=== PATIENT | male | born 1970 | race Caucasian/White ===

== ENCOUNTER 2024-09-25 14:10 | Inpatient (IN) ==
[2024-09-25 14:29] LABS: Basophils # (auto) 0.08 K/uL (0.00-0.20); Basophils % (auto) 0.6 %; Eosinophils % (auto) 0.8 %; Hematocrit (blood only) 43.6 % (42.0-52.0); Immature Granulocytes # (auto) 0.22 K/uL (0.01-0.20); Immature Granulocytes % (auto) 1.7 %; Lymphocytes # (auto) 2.95 K/uL (1.20-3.40); Lymphocytes % (auto) 22.8 %; Mean Corpuscular Hemoglobin 29.1 pg (25.0-34.0); Mean Corpuscular Hgb Conc 34.4 g/dL (32.0-36.0); Mean Corpuscular Volume 84.7 fL (80.0-100.0); Mean Platelet Volume 10.5 fL (9.4-12.4); Monocytes # (auto) 0.82 K/uL (0.11-0.59); Monocytes % (auto) 6.3 %; Neutrophils # (auto) 8.75 K/uL (1.40-6.50); Neutrophils % (auto) 67.8 %; Platelet Count 249 K/uL (130-400); RDW Coefficient of Variation 13.4 % (11.5-14.5); RDW Standard Deviation 41.7 fL (36.4-46.3); Red Blood Count 5.15 M/uL (4.70-6.10); White Blood Count 12.92 K/ul (4.8-10.8)
[2024-09-25 15:02] LABS: Alanine Aminotransferase 15 U/L (7-52); Albumin Globulin Ratio 1.1 (0.9-2); Albumin Level 3.8 gm/dl (3.4-5.0); Alkaline Phosphatase 181 U/L (34-104); Anion Gap 6 (3-11); Aspartate Aminotransferase 13 U/L (13-39); BUN Creatinine Ratio 12.5 (10-20); Bilirubin,Total 0.4 mg/dl (0.2-1.0); Blood Urea Nitrogen 10 mg/dl (6-23); Calcium 8.8 mg/dl (8.6-10.3); Carbon Dioxide 26 mmol/L (21-32); Chloride 98 mmol/L (98-107); Creatinine Clr Calc Pharmacy 115.4 ml/min; Globulin 3.6 gm/dl (2.5-4.0); Glucose 557 mg/dl (70-99(Fasting)); Potassium 4.4 mmol/L (3.5-5.1); Sodium 130 mmol/L (136-145); Total Protein 7.4 gm/dl (6.0-8.3)
[2024-09-25] MEDS: SODIUM CHLORIDE 0.9% 1,000 ML IV ONE (15:46)
--- NOTE | 2024-09-25 15:51 | XRay Report ---
XR chest 1V portable CLINICAL HISTORY: weakness COMPARISON STUDY: No previous studies for comparison. FINDINGS: Intracanalicular electrodes are incidentally noted. There is mild elevation of the right he midiaphragm. Associated right basilar opacity favors atelectasis. No consolidation to suggest pneumon ia. There is no evidence for pulmonary edema. Cardiomediastinal silhouette is unremarkable. IMPRESSION: 1. No acute cardiopulmonary findings. 2. Mild elevation of the right hemidiaphragm. Associated right basilar densities favor atelectasis. ACT 112: Negative or not required by law. Electronically signed by: Sergio Andrew M.D. 09/25/2024 3:49 PM
[2024-09-25 15:58] LABS: Magnesium 1.8 mg/dl (1.7-2.4)
[2024-09-25] MEDS: NovoLIN-R INSULIN PER UNIT CHARGE SC STA ×2 (16:01→19:23)
[2024-09-25] MEDS: NovoLIN-R INSULIN PER UNIT CHARGE IV STA (16:02)
[2024-09-25 16:10] LABS: C Reactive Protein < 0.50 mg/dl (0-0.5)
[2024-09-25] MEDS: OPTIRAY 320 100ml IV ONE (16:16)
[2024-09-25 16:20] LABS: Thyroid Stimulating Hormone 0.885 uIu/ml (0.300-4.500)
[2024-09-25] MEDS: ONDANSETRON INJ 2 MG/ML 2 ML VIAL IV STA (16:46)
[2024-09-25] MEDS: MoRPHine SULFATE 4 MG/ML 1 ML CARP\\VIAL IV STA (16:47)
[2024-09-25 16:51] LABS: Appearance Urine Clear (Clear); Bilirubin Urine Negative (Negative); Blood Urine Negative (Negative); Color Urine Yellow; Glucose Urine UA 3+ (Negative); Ketones Urine Negative (Negative); Leukocyte Esterase Urine Negative (Negative); Nitrite Urine Negative (Negative); Protein Urine Negative (Negative); Urobilinogen Urine Negative (Negative); pH Urine 6.5 (4.5-7.5)
--- NOTE | 2024-09-25 17:09 | CT Scan Report ---
INDICATION: Abdominal pain and bloody stools. COMPARISON: No relevant priors available. TECHNIQUE: Axial CT images of the abdomen and pelvis were obtained following IV contrast administration. Coronal and sagittal reformations were reviewed. FINDINGS: Subsegmental atelectasis in the lung bases. Hepatic steatosis. The gallbladder is surgically absent. The spleen, pancreas and adrenal glands appear unremarkable. No hydronephrosis. No evidence of bowel obstruction/appendicitis. Mildly dilated small bowel loops in the left lower quadrant. No pneumatosis or portal venous gas. No free air. No drainable fluid collection. Atheromatous plaquing of the abdominal aorta without dissection or aneurysm. Mild urinary bladder distention. Small fat-containing bilateral inguinal hernias. No acute osseous abnormality evident. IMPRESSION: 1. Mildly dilated small bowel loops in the left lower quadrant could relate to ileus or obstruction. No pneumatosis/portal venous gas or free air. 2. Hepatic steatosis. 3. Small fat-containing bilateral inguinal hernias. Electronically signed by Des Donald 09-25-2024 5:08 PM
--- NOTE | 2024-09-25 17:14 | XRay Report ---
Clinical History: Diabetic ulcer 3 views of the left foot are submitted for review. Findings: There is sclerosis and deformity of the second metatarsal head. No subluxation or dislocation is seen. No significant arthritic changes are noted. There are dorsal and plantar calcaneal spurs. No other osseous abnormality is identified. There are no radiopaque foreign bodies. Vascular calcifications are present. Impression: 1. Sclerosis and deformity of the second metatarsal head, which could be due to old trauma 2. Calcaneal spurs 3. No definite acute pathology Electronically signed by Dariel Mauro 09-25-2024 5:13 PM
--- NOTE | 2024-09-25 17:15 | Electrocardiogram Report ---
Test Reason : Blood Pressure : */* mmHG Vent. Rate : 82 BPM Atrial Rate : 82 BPM P-R Int : 144 ms QRS Dur : 72 ms QT Int : 358 ms P-R-T Axes : 43 51 53 degrees QTcB Int : 418 ms Normal sinus rhythm No previous ECGs available Confirmed by Parker Aiken ([id number]) on 09/25/2024 5:14:44 PM Referred By: REFERRED SELF Confirmed By: Parker Aiken
--- NOTE | 2024-09-25 19:10 | History & Physical Report ---
Date of Service September 25, 2024 Assessment & Plan (1) Hyperglycemia due to type 2 diabetes mellitus: (2) Type 2 diabetes mellitus: (3) Diabetic foot ulcer: (4) Vomiting and diarrhea: (5) Hyponatremia: Plan 54-year-old male PMHx T2DM insulin-dependent, Crohn's disease, dyslipidemia, and GERD presenting for a left foot blister that has been ongoing for the past 5 weeks and has not gotten better. Patient is from [place], has recently moved to the area. Also having vomiting and diarrhea with every meal. Pt has leukocytosis 12.92 on arrival, ESR 24, and Na 130 with initial glucose 557, alkaline phos 181. CTAP with mildly dilated small bowel loops in LLQ, ileus or obstruction, hepatic steatosis, small fat-containing bilateral inguinal hernias; CXR without acute findings, but mild elevation of the R hemidiaphragm; L foot x- ray with sclerosis and deformity of the second metatarsal head could be due to old trauma, calcaneal spurs, but no acute findings. Patient received 2L NSS, Zofran 4 mg IV, morphine 4 mg IV, and 18 units of insulin in ED. #Hyperglycemia/T2DM, insulin-dependent H/o DMT2; home regimen Lantus 30U every AM, Ozempic 2 mg SC weekly. Upon arrival, glucose 557. Received 18U insulin and total, most recent glucose 325. Has been eating poorly over the past 2 days given traveling from [place] to [place], did take insulin on the morning of arrival. - Pending A1c - SSI with target BSG range 110-140mg/dL, CF 40, carb ratio 15; Lantus 15 BID - Hold Ozempic while inpatient - BSG ACHS - Pharm glycemic management consult placed, appreciate assistance- Adjust regimen as needed #Diabetic foot ulcer, left No h/o animal/human bites, h/o DMT2 with previous foot wound complicated by gangrene; started ~ 5 weeks ago, had had yellow drainage, not healing and causing significant pain. - CBC elevated WBC 12.9; XR L foot with sclerosis and deformity of second metatarsal head (old trauma), calcaneal spurs, but no acute findings; pending culture - CT pending- NO MRI completed given metal plate in back and noncompatible with MRI - Start Zosyn; Wound care prn - +/- infectious disease consult pending clinical improvement; no consult placed at time of admission #Vomiting + Diarrhea/? Ileus/Crohn's disease/GERD Vomiting every morning for the past 3 months, with abdominal pain at L side. Diarrhea x 1.5 months with blood streaking in stool, abdominal pain with BM. History of Crohn's disease, no medications for such. Last colonoscopy ~ 3 years ago, polyps identified by noncancerous. No sick contacts. No recent antibiotics. ? gastroparesis causing symptoms. - CBC with leukocytosis, electrolytes grossly WNL with exception of sodium 130; alkaline phosphatase elevated 181 - CTAP with mildly dilated small bowel loops in LLQ (ileus or obstruction), hepatic steatosis, and bilateral inguinal hernias - Pending stool BioFire and C. difficile testing - Sucralfate added; increased omeprazole to 40mg - NPO; continue IVF - Consider GI consult #Hyponatremia Likely secondary to hyperglycemia; currently asymptomatic and euvolemic clinically. - Na 130, glucose initially 557; corrected sodium 141 - BMP am #Dyslipidemia- Atorvastatin, ezetimibe Case management consulted- PCP for patient + given recent move to [place] Dispo: Admit, med/sx VTE prophylaxis: Lovenox This document was dictated utilizing [employer]. Please excuse any grammatical errors that may be secondary to use of this software. Admission and Anticipated Discharge Date Admission Date: 09/25/2024 History of Present Illness Chief Complaint: Foot wound, vomiting and diarrhea Primary Care Provider: NO PCP 54-year-old male PMHx T2DM insulin-dependent, Crohn's disease, dyslipidemia, and GERD presenting for a left foot blister that has been ongoing for the past 5 weeks and has not gotten better. Patient is from [place], has recently moved to the area. Also having vomiting and diarrhea with every meal which has been ongoing. Patient states that the wound on his L foot began approximately 5 weeks ago, and that he does not recall direct injury to the area he just noticed that it had started. He had previous infections secondary to a thorn being in his foot which required infectious disease consults and surgical consultations as he had the complication of gangrene in this same area. States that the pain has just been worsening to the point where he is unable to put any weight on it or walk on the area. Pain today is a 9/10 on the pain scale, described as aching and pressure that surrounds the entire foot. For the past 2 days [employer] he was trying to keep weight off of his foot for this reason. States that previously he was having yellow drainage coming out of the area, but this stopped approximately 1 week ago. No streaking up the leg, but does feel that the sides of his foot are swollen at times. Glucose was elevated at 557 on arrival, but the patient states that he was eating excessive amount of junk food over the past 2 days given that he was traveling from [place] to [place]. Has been taking medications as prescribed. Additionally, patient has been having complaint of vomiting every morning for the past 3 months as well as diarrhea for the past 1.5 months with associated blood streaking in his stool. Does have a history of Crohn's and had colonoscopy approximately 3 years ago which did reveal polyps but noncancerous nature. States that he does get abdominal pain mainly in the left side, and also is exacerbated when he has vomiting. Has not had any fever or chills. Additionally no chest pain, shortness of breath, palpitations, constipation, worsening numbness or tingling, LUTS, or dizziness. ED workup reveals a CBC with leukocytosis of 12.92, ESR 24, CMP with sodium 130, initial glucose 557, most recent 325 after 18U insulin, alkaline phosphatase 181, and UA without signs of infection. CTAP with mildly dilated small bowel loops in LLQ, ileus or obstruction, hepatic steatosis, small fat-containing bilateral inguinal hernias; CXR without acute findings, but mild elevation of the R hemidiaphragm; L foot x-ray with sclerosis and deformity of the second metatarsal head could be due to old trauma, calcaneal spurs, but no acute findings. Patient received 2L NSS, Zofran 4 mg IV, morphine 4 mg IV, and 18 units of insulin in ED. Please see Dr. Oscar's attestation for adjustments/additions to treatment plan. Allergies Allergy/AdvReac Type Severity Reaction Status Date / Time diphenhydramine Allergy Severe hyperactive Verified 09/25/24 17:58 [From Benadryl] ,anxiety,mauricio llucination s haloperidol [From Haldol] Allergy Severe hyperactivi Verified 09/25/24 17:58 ty,agitatio n pregabalin [From Lyrica] Allergy Intermediate hands and Verified 09/25/24 17:58 feet swell and burn Home Medications Medication Instructions Recorded Confirmed Type atorvastatin 20 mg tablet 20 mg PO QAM 09/25/24 09/25/24 History ezetimibe 10 mg tablet (Zetia) 10 mg PO QAM 09/25/24 09/25/24 History gabapentin 800 mg tablet 800 mg PO QAM 09/25/24 09/25/24 History gabapentin 800 mg tablet 800 mg PO TID PRN Pain 09/25/24 09/25/24 History insulin glargine 100 unit/mL 30 unit subcut QAM 09/25/24 09/25/24 History subcutaneous solution (Lantus U-100 Insulin) omeprazole 20 mg tablet,delayed 20 mg PO QAM 09/25/24 09/25/24 History release semaglutide 2 mg/dose (8 mg/3 mL) 2 mg subcut WK 09/25/24 09/25/24 History subcutaneous pen injector (Ozempic) Past Med/Surg History Problem List (Updated 09/25/24 @ 20:16 by Karon Brink PA-C) Hyponatremia Vomiting and diarrhea Diabetic foot ulcer Type 2 diabetes mellitus Hyperglycemia due to type 2 diabetes mellitus Social History Smoking Status: Never smoker Feels Safe at Home: Yes Review of Systems 2 Review of Systems: All systems reviewed & are unremarkable except as noted in Subjective Physical Exam 2 Physical Exam: General: No acute distress Skin: Warm and dry; no rashes or lesions aside from L foot; L MTP w/ quarter sized ulceration, pink in center and yellow, dry skin around border, no oozing; no streaking; mild edema in surrounding area. Head: Normocephalic, atraumatic Eyes: PERRL, conjunctivae clear, sclera non-icteric; EOM intact ENT: External ear and ear canal without swelling; nose atraumatic; fair dentition, tongue normal appearance, pharynx normal Neck: Supple, no LAD; no JVD Cardio: RRR, no M/G/R, S1 and S2 normal Resp: No respiratory distress, Lungs CTA in all lobes bilaterally, no wheezes, rales, or rhonchi Abdomen: Soft, symmetric, mild tenderness to palpation L quadrant, no guarding or rebound tenderness; No distention; No masses or hepatosplenomegaly; Bowel sounds normoactive MSK: No deformities, full ROM throughout; pulses palpable and equal Neuro: Awake, alert; Muscle strength 5/5 bilaterally in UE/LE; Sensation intact bilaterally; CN grossly intact Psych: Appropriate mood and affect; good judgement and insight. present in room at time of visit. Results & Data Results & Data Vital Signs (Past 12 Hours) Vital Signs Temp Pulse Pulse Resp BP BP Pulse Ox 09/25/24 18:00 80 17 152/96 H 96 09/25/24 16:38 74 09/25/24 16:34 74 22 95 09/25/24 16:00 79 17 156/92 H 95 09/25/24 14:12 36.7 C 96 H 20 150/96 H 97 O2 Del Method 09/25/24 18:00 Room Air 09/25/24 16:38 09/25/24 16:34 Room Air 09/25/24 16:00 Room Air 09/25/24 14:12 Room Air Laboratory Results 09/25/24 18:10 Gram Stain - Pending Foot,Left Aerobic and Anaerobic Culture - Pending 09/25/24 09/25/24 09/25/24 17:23 16:35 15:44 WBC RBC Hgb Hct MCV MCH MCHC RDW Std Deviation RDW Coeff of Cristhian Plt Count MPV Immature Gran % (Auto) Neut % (Auto) Lymph % (Auto) [place] % (Auto) Eos % (Auto) Baso % (Auto) Neut # (Auto) Lymph # (Auto) [place] # (Auto) Eos # (Auto) Baso # (Auto) Immature Gran # (Auto) ESR Sodium Potassium Chloride Carbon Dioxide Anion Gap BUN Creatinine Est Cr Clr Drug Dosing eGFR BUN/Creatinine Ratio Glucose POC Glucose 325 H* 399 H* Calcium Magnesium Total Bilirubin AST ALT Alkaline Phosphatase C-Reactive Protein Total Protein Albumin Globulin Albumin/Globulin Ratio TSH Urine Color Yellow Urine Appearance Clear Urine pH 6.5 Ur Specific [place] 1.040 H Urine Protein Negative Urine Glucose (UA) 3+ H Urine Ketones Negative Urine Blood Negative Urine Nitrite Negative Urine Bilirubin Negative Urine Urobilinogen Negative Ur Leukocyte Esterase Negative 09/25/24 14:16 WBC 12.92 H RBC 5.15 Hgb 15.0 Hct 43.6 MCV 84.7 MCH 29.1 MCHC 34.4 RDW Std Deviation 41.7 RDW Coeff of Cristhian 13.4 Plt Count 249 MPV 10.5 Immature Gran % (Auto) 1.7 Neut % (Auto) 67.8 Lymph % (Auto) 22.8 [place] % (Auto) 6.3 Eos % (Auto) 0.8 Baso % (Auto) 0.6 Neut # (Auto) 8.75 H Lymph # (Auto) 2.95 [place] # (Auto) 0.82 H Eos # (Auto) 0.10 Baso # (Auto) 0.08 Immature Gran # (Auto) 0.22 H ESR 24 H Sodium 130 L Potassium 4.4 Chloride 98 Carbon Dioxide 26 Anion Gap 6 BUN 10 Creatinine 0.80 Est Cr Clr Drug Dosing 115.4 eGFR 105.17 BUN/Creatinine Ratio 12.5 Glucose 557 H* POC Glucose Calcium 8.8 Magnesium 1.8 Total Bilirubin 0.4 AST 13 ALT 15 Alkaline Phosphatase 181 H C-Reactive Protein < 0.50 Total Protein 7.4 Albumin 3.8 Globulin 3.6 Albumin/Globulin Ratio 1.1 TSH 0.885 Urine Color Urine Appearance Urine pH Ur Specific [place] Urine Protein Urine Glucose (UA) Urine Ketones Urine Blood Urine Nitrite Urine Bilirubin Urine Urobilinogen Ur Leukocyte Esterase Diagnostic Findings Abdomen/Pelvis CT 09/25/24 15:35 INDICATION: Abdominal pain and bloody stools. COMPARISON: No relevant priors available. TECHNIQUE: Axial CT images of the abdomen and pelvis were obtained following IV contrast administration. Coronal and sagittal reformations were reviewed. FINDINGS: Subsegmental atelectasis in the lung bases. Hepatic steatosis. The gallbladder is surgically absent. The spleen, pancreas and adrenal glands appear unremarkable. No hydronephrosis. No evidence of bowel obstruction/appendicitis. Mildly dilated small bowel loops in the left lower quadrant. No pneumatosis or portal venous gas. No free air. No drainable fluid collection. Atheromatous plaquing of the abdominal aorta without dissection or aneurysm. Mild urinary bladder distention. Small fat-containing bilateral inguinal hernias. No acute osseous abnormality evident. IMPRESSION: 1. Mildly dilated small bowel loops in the left lower quadrant could relate to ileus or obstruction. No pneumatosis/portal venous gas or free air. 2. Hepatic steatosis. 3. Small fat-containing bilateral inguinal hernias. Electronically signed by Des Donald 09-25-2024 5:08 PM Chest X-Ray 09/25/24 15:35 XR chest 1V portable CLINICAL HISTORY: weakness COMPARISON STUDY: No previous studies for comparison. FINDINGS: Intracanalicular electrodes are incidentally noted. There is mild elevation of the right hemidiaphragm. Associated right basilar opacity favors atelectasis. No consolidation to suggest pneumonia. There is no evidence for pulmonary edema. Cardiomediastinal silhouette is unremarkable. IMPRESSION: 1. No acute cardiopulmonary findings. 2. Mild elevation of the right hemidiaphragm. Associated right basilar densities favor atelectasis. ACT 112: Negative or not required by law. Electronically signed by: Sergio Andrew M.D. 09/25/2024 3:49 PM Foot X-Ray 09/25/24 16:29 Clinical History: Diabetic ulcer 3 views of the left foot are submitted for review. Findings: There is sclerosis and deformity of the second metatarsal head. No subluxation or dislocation is seen. No significant arthritic changes are noted. There are dorsal and plantar calcaneal spurs. No other osseous abnormality is identified. There are no radiopaque foreign bodies. Vascular calcifications are present. Impression: 1. Sclerosis and deformity of the second metatarsal head, which could be due to old trauma 2. Calcaneal spurs 3. No definite acute pathology Electronically signed by Dariel Mauro 09-25-2024 5:13 PM Medications Administered NSS 1L Ondansetron 4 mg IV Morphine 4 mg IV Insulin human regular 28 units total (SQ/IV) ECG Additional Comments: cc: ~ DICTATED BY: Parker Aiken MD Test Reason : Blood Pressure : */* mmHG Vent. Rate : 82 BPM Atrial Rate : 82 BPM P-R Int : 144 ms QRS Dur : 72 ms QT Int : 358 ms P-R-T Axes : 43 51 53 degrees QTcB Int : 418 ms Normal sinus rhythm No previous ECGs available Confirmed by Parker Aiken ([id number]) on 09/25/2024 5:14:44 PM Referred By: REFERRED SELF Confirmed By: Parker Aiken Code Status & VTE Plan Code Status Full PG Care Time/CCT Total # of Minutes Spent Total Time Spent with Patient: Total time spent is greater than 50% in coordination of care (as documented) at patient's floor/unit and/or counseling patient: Coding Level of Care Code 65413 INT INP/OBS CARE 3/75MIN Diagnoses Hyperglycemia due to type 2 diabetes mellitus E11.65 Type 2 diabetes mellitus E11.9 Diabetic foot ulcer E11.621; L97.509 Vomiting and diarrhea R11.10; R19.7 Hyponatremia E87.1
[2024-09-25] MEDS: SODIUM CHLORIDE 0.9% 1,000 ML IV SCH (19:14)
[2024-09-25] MEDS ORDERED: GLUCOSE 10 TAB/TUBE PO PRN (20:07)
[2024-09-25] MEDS ORDERED: DEXTROSE 50% 50 ML SYRINGE IV PRN (20:07)
[2024-09-25] MEDS ORDERED: CARBOHYDRATES FOR HYPOGLYCEMIA PO PRN (20:07)
[2024-09-25] MEDS ORDERED: GLUCOSE 40% GEL 15 GM TUBE PO PRN (20:07)
[2024-09-25] MEDS ORDERED: PHARMACY GLYCEMIC MGMT CONSULT PRN (20:07)
[2024-09-25] MEDS ORDERED: GLUCAGON FOR INJ 1 MG VIAL SQ PRN (20:07)
[2024-09-25] MEDS: HYDROmorphone INJ 0.5 MG/0.5 ML SYR IV ONE (20:26)
[2024-09-25] MEDS ORDERED: ALUMINUM/MAGNESIUM SUSP 30 ML UDC PO PRN (20:32)
[2024-09-25] MEDS ORDERED: MELATONIN 3 MG TAB PO PRN (20:32)
[2024-09-25] MEDS: LANTUS PER UNIT CHARGE SQ SCH (21:32)
[2024-09-25] MEDS: ENOXAPARIN INJ 40 MG/0.4 ML SYR SQ SCH (21:32)
[2024-09-25] MEDS: SUCRALFATE 1 GM/10 ML UDC PO SCH (21:32)
[2024-09-25] MEDS: PIPERACILLIN/TAZOBACTAM 4.5 GM/100 ML BAG IV ONE (21:33)
--- NOTE | 2024-09-25 22:14 | Emergency Department Note ---
Impression & Plan Vomiting and diarrhea, Hyperglycemia due to type 2 diabetes mellitus, Diabetic foot ulcer ED Provider Note CHIEF COMPLAINT: left foot ulceration, diarrhea and vomiting HISTORY OF PRESENT ILLNESS: This 54-year-old male patient past medical history of type 2 diabetes, diabetic foot ulceration , Crohn's disease presents to the emergency department with complaints of vomiting or diarrhea after eating for the last several weeks as well as a wound to the bottom of the left foot. He states he just moved here from [place] and was off of his insulin for approximately a week. His states they had a lot of "sugary foods" during their travel. patient states he did take his insulin prior to coming to the emergency department. Patient denies any fevers or significant pain. He has not been on antibiotics recently. He denies any blood in his emesis or stools. He denies chest pain and significant shortness of breath. He does not have a primary care physician in this area. REVIEW OF SYSTEMS: A review of systems was performed with positives and pertinent negatives listed in the history of present illness. 10 systems were reviewed and are otherwise negative. ALLERGIES: see below MEDICATIONS: see below PMH: see below SOCIAL HISTORY: see below DDx: Diabetic foot ulcer, cellulitis, osteomyelitis, dehydration, kidney injury, foodborne process, norovirus, C. difficile, PHYSICAL EXAM: Vital signs reviewed. General: Well-appearing 54-year-old male, in no significant distress. HEENT: No scleral icterus, PERRLA, neck supple. moist mucous membranes Cardiovascular: Regular rate and rhythm, no extra sounds. Pulmonary: Clear to auscultation bilaterally, normal work of breathing. Abdomen: Soft, obese, nontender, nondistended, positive bowel sounds. Musculoskeletal: Atraumatic, no peripheral edema. Neurologic: Patient awake alert and oriented x 3, speech is clear Skin: Warm, dry, dime sized ulceration to the first MTP on the plantar surface of the left foot no significant drainage or surrounding cellulitis however the fascia is visible EMERGENCY DEPARTMENT COURSE/MDM: This patient was evaluated and appeared to be in no significant distress. IV access was obtained and laboratory work was drawn. Patient's blood glucose is noted to be over 500. X-ray of the left foot reveals sclerosis and deformity of the second metatarsal head however no evidence of acute pathology. Given the patient's complaints of months of vomiting and diarrhea, CT imaging of the abdomen pelvis was performed, there are mildly dilated loops of bowels in the left lower quadrant. I suspect this could be ileus or related to the patient's stated history of Crohn's disease. I do not suspect obstruction at this time. Laboratory work otherwise reveals a slightly elevated sed rate and negative CRP. Patient was medicated with morphine and Zofran for complaints of pain. He was hydrated with normal saline solution and given insulin for his hyperglycemia. Patient does not have insurance locally, does not have a PCP established. He will require admission for wound care, glycemic control, GI evaluation and case management. Patient and family were informed of findings and plan and agreed. MONITORING: An order for cardiac monitoring was placed and the patient is noted to be in a normal sinus rhythm at 83 beats per minute. RADIOLOGY: Chest x-ray to my interpretation reveals no evidence of infiltrate or failure. Right basilar atelectasis is noted. Left foot x-ray: Impression: 1. Sclerosis and deformity of the second metatarsal head, which could be due to old trauma 2. Calcaneal spurs 3. No definite acute pathology CT abdomen and pelvis: IMPRESSION: 1. Mildly dilated small bowel loops in the left lower quadrant could relate to ileus or obstruction. No pneumatosis/portal venous gas or free air. 2. Hepatic steatosis. 3. Small fat-containing bilateral inguinal hernias. EKG: to my interpretation reveals a NSR at [address] segments, QTc 418. normal ST segments. DISPOSITION: Home. Past Med/Surg History Problem List (Updated 09/28/24 @ 20:09 by Ade Ramirez MD) Pain Loss of protective sensation of skin of foot Diabetic ulcer of left foot associated with type 2 diabetes mellitus, with fat layer exposed Hyponatremia Vomiting and diarrhea (Acute) Diabetic foot ulcer (Acute) Type 2 diabetes mellitus Hyperglycemia due to type 2 diabetes mellitus (Acute) Social History Smoking Status: Former smoker Hx Alcohol Use: No Hx Substance Use: No Communication Ability: Effective Balloon Tester Required: No Beliefs That Will Affect Care: None Current Living Situation: Spouse Feels Safe at Home: Yes Assistive Devices: None Allergies Allergies Allergy/AdvReac Type Severity Reaction Status Date / Time diphenhydramine Allergy Severe hyperactive Verified 09/25/24 17:58 [From Benadryl] ,anxiety,mauricio llucination s haloperidol [From Haldol] Allergy Severe hyperactivi Verified 09/25/24 17:58 tygopal pregabalin [From Lyrica] Allergy Intermediate hands and Verified 09/25/24 17:58 feet swell and burn Home Meds Previous Rx's Medication Instructions Recorded atorvastatin 20 mg tablet 20 mg PO QAM #30 tabs 09/28/24 cephalexin 500 mg capsule 500 mg PO TID 10 days #30 caps 09/28/24 ezetimibe 10 mg tablet (Zetia) 10 mg PO QAM #30 tabs 09/28/24 gabapentin 800 mg tablet 800 mg PO QAM #30 tabs 09/28/24 gabapentin 800 mg tablet 800 mg PO TID PRN Pain #90 tabs 09/28/24 insulin glargine 100 unit/mL 30 unit (0.3 mL) subcut QAM #3 mL 09/28/24 subcutaneous solution (Lantus U-100 Insulin) lisinopril 5 mg tablet 5 mg PO QAM #30 tabs 09/28/24 omeprazole 20 mg tablet,delayed 20 mg PO QAM #30 tabs 09/28/24 release oxycodone-acetaminophen 5 mg-325 1 - 2 tab PO Q4H PRN pain #10 tabs 09/28/24 mg tablet (Percocet) pen needle, diabetic 32 gauge x #100 ea 09/28/24 5/32" (Pen Needle) semaglutide 2 mg/dose (8 mg/3 mL) 2 mg (0.75 mL) subcut WK #3 mL 09/28/24 subcutaneous pen injector (Ozempic) Results & Data (ED) Vital Signs Vital Signs - 24 hr 09/25/24 14:12 09/25/24 16:00 09/25/24 16:34 Temperature 36.7 C Temperature Source Temporal Artery Scan Pulse Rate 96 H 74 Pulse Rate [Apical] 79 Pulse Rhythm Regular Regular Pulse Rhythm [Apical] Regular Pulse Strength Normal Pulse Strength [Apical] Normal Respiratory Rate 20 17 22 Respiratory Effort / Characteristics Non-Labored Spontaneous Non-Labored Spontaneous Respiratory Depth Normal Normal Respiratory Pattern Blood Pressure 150/96 H Blood Pressure [Right Arm] 156/92 H Blood Pressure Mean 114 Blood Pressure Mean [Right Arm] 113 Blood Pressure Position Sitting Blood Pressure Position [Right Arm] Sitting Pulse Oximetry 97 95 95 Oxygen Delivery Method Room Air Room Air Room Air Sepsis Recent Fever Within 48 Hours No Sepsis New/Unexplained Change in Mental Status N/A Sepsis Action Taken by Nursing No Action Required 09/25/24 16:38 09/25/24 18:00 09/25/24 19:11 Temperature Temperature Source Pulse Rate 74 Pulse Rate [Apical] 80 83 Pulse Rhythm Pulse Rhythm [Apical] Regular Pulse Strength Pulse Strength [Apical] Normal Respiratory Rate 17 23 Respiratory Effort / Characteristics Non-Labored Spontaneous Non-Labored Spontaneous Respiratory Depth Normal Normal Respiratory Pattern Regular Blood Pressure Blood Pressure [Right Arm] 152/96 H 140/83 Blood Pressure Mean Blood Pressure Mean [Right Arm] 114 102 Blood Pressure Position Blood Pressure Position [Right Arm] Semi-fowlers Pulse Oximetry 96 95 Oxygen Delivery Method Room Air Room Air Sepsis Recent Fever Within 48 Hours Sepsis New/Unexplained Change in Mental Status Sepsis Action Taken by Prison Medications Current Medication List: was personally reviewed by me Laboratory Data Attestation: I reviewed the patient's lab results. 09/27/24 07:56 09/27/24 07:56 Lab Results 09/25/24 09/25/24 09/25/24 Range/Units 14:16 15:44 16:35 WBC 12.92 H (4.8-10.8) K/ul RBC 5.15 (4.70-6.10) M/uL Hgb 15.0 (14.0-18.0) g/dl Hct 43.6 (42.0-52.0) % MCV 84.7 (80.0-100.0) fL MCH 29.1 (25.0-34.0) pg MCHC 34.4 (32.0-36.0) g/dL RDW Std Deviation 41.7 (36.4-46.3) fL RDW Coeff of Cristhian 13.4 (11.5-14.5) % Plt Count 249 (130-400) K/uL MPV 10.5 (9.4-12.4) fL Immature Gran % (Auto) 1.7 % Neut % (Auto) 67.8 % Lymph % (Auto) 22.8 % [place] % (Auto) 6.3 % Eos % (Auto) 0.8 % Baso % (Auto) 0.6 % Neut # (Auto) 8.75 H (1.40-6.50) K/uL Lymph # (Auto) 2.95 (1.20-3.40) K/uL [place] # (Auto) 0.82 H (0.11-0.59) K/uL Eos # (Auto) 0.10 (0.00-0.50) K/uL Baso # (Auto) 0.08 (0.00-0.20) K/uL Immature Gran # (Auto) 0.22 H (0.01-0.20) K/uL ESR 24 H (0-20) mm/hr Sodium 130 L (136-145) mmol/L Potassium 4.4 (3.5-5.1) mmol/L Chloride 98 (98-107) mmol/L Carbon Dioxide 26 (21-32) mmol/L Anion Gap 6 (3-11) BUN 10 (6-23) mg/dl Creatinine 0.80 (0.6-1.4) mg/dl Est Cr Clr Drug Dosing 115.4 ml/min eGFR 105.17 BUN/Creatinine Ratio 12.5 (10-20) Glucose 557 H* (70-99(Fasting)) mg/dl POC Glucose 399 H* (70-99) mg/dl Calcium 8.8 (8.6-10.3) mg/dl Magnesium 1.8 (1.7-2.4) mg/dl Total Bilirubin 0.4 (0.2-1.0) mg/dl AST 13 (13-39) U/L ALT 15 (7-52) U/L Alkaline Phosphatase 181 H (34-104) U/L C-Reactive Protein < 0.50 (0-0.5) mg/dl Total Protein 7.4 (6.0-8.3) gm/dl Albumin 3.8 (3.4-5.0) gm/dl Globulin 3.6 (2.5-4.0) gm/dl Albumin/Globulin Ratio 1.1 (0.9-2) TSH 0.885 (0.300-4.500) uIu/ml Urine Color Yellow Urine Appearance Clear (Clear) Urine pH 6.5 (4.5-7.5) Ur Specific [place] 1.040 H (1.000-1.030) Urine Protein Negative (Negative) Urine Glucose (UA) 3+ H (Negative) Urine Ketones Negative (Negative) Urine Blood Negative (Negative) Urine Nitrite Negative (Negative) Urine Bilirubin Negative (Negative) Urine Urobilinogen Negative (Negative) Ur Leukocyte Esterase Negative (Negative) 09/25/24 09/25/24 Range/Units 17:23 19:18 WBC (4.8-10.8) K/ul RBC (4.70-6.10) M/uL Hgb (14.0-18.0) g/dl Hct (42.0-52.0) % MCV (80.0-100.0) fL MCH (25.0-34.0) pg MCHC (32.0-36.0) g/dL RDW Std Deviation (36.4-46.3) fL RDW Coeff of Cristhian (11.5-14.5) % Plt Count (130-400) K/uL MPV (9.4-12.4) fL Immature Gran % (Auto) % Neut % (Auto) % Lymph % (Auto) % [place] % (Auto) % Eos % (Auto) % Baso % (Auto) % Neut # (Auto) (1.40-6.50) K/uL Lymph # (Auto) (1.20-3.40) K/uL [place] # (Auto) (0.11-0.59) K/uL Eos # (Auto) (0.00-0.50) K/uL Baso # (Auto) (0.00-0.20) K/uL Immature Gran # (Auto) (0.01-0.20) K/uL ESR (0-20) mm/hr Sodium (136-145) mmol/L Potassium (3.5-5.1) mmol/L Chloride (98-107) mmol/L Carbon Dioxide (21-32) mmol/L Anion Gap (3-11) BUN (6-23) mg/dl Creatinine (0.6-1.4) mg/dl Est Cr Clr Drug Dosing ml/min eGFR BUN/Creatinine Ratio (10-20) Glucose (70-99(Fasting)) mg/dl POC Glucose 325 H* 234 H (70-99) mg/dl Calcium (8.6-10.3) mg/dl Magnesium (1.7-2.4) mg/dl Total Bilirubin (0.2-1.0) mg/dl AST (13-39) U/L ALT (7-52) U/L Alkaline Phosphatase (34-104) U/L C-Reactive Protein (0-0.5) mg/dl Total Protein (6.0-8.3) gm/dl Albumin (3.4-5.0) gm/dl Globulin (2.5-4.0) gm/dl Albumin/Globulin Ratio (0.9-2) TSH (0.300-4.500) uIu/ml Urine Color Urine Appearance (Clear) Urine pH (4.5-7.5) Ur Specific [place] (1.000-1.030) Urine Protein (Negative) Urine Glucose (UA) (Negative) Urine Ketones (Negative) Urine Blood (Negative) Urine Nitrite (Negative) Urine Bilirubin (Negative) Urine Urobilinogen (Negative) Ur Leukocyte Esterase (Negative) Administered Medications Discontinued Medications Acetaminophen (Acetaminophen 325 Mg Tab) 650 mg PO Q4H PRN PRN Reason: pain/fever Stop: 10/25/24 20:31 Last Admin: 09/26/24 23:07 Dose: 650 mg Documented By: Admin: 09/26/24 16:20 Dose: 650 mg Documented By: AMPARO Atorvastatin Calcium (Atorvastatin 20 Mg Tab) 20 mg PO [facility] Stop: 10/26/24 08:59 Last Admin: 09/28/24 07:20 Dose: 20 mg Documented By: Admin: 09/27/24 08:31 Dose: 20 mg Documented By: Admin: 09/26/24 08:55 Dose: 20 mg Documented By: GREGG Ezetimibe (Ezetimibe 10 Mg Tab) 10 mg PO [facility] Stop: 10/26/24 08:59 Last Admin: 09/28/24 07:20 Dose: 10 mg Documented By: Admin: 09/27/24 08:31 Dose: 10 mg Documented By: Admin: 09/26/24 08:11 Dose: 10 mg Documented By: GREGG Enoxaparin Sodium (Enoxaparin Inj 40 Mg/0.4 Ml Syr) 40 mg SQ Q24H [facility] Stop: 10/25/24 20:59 Last Admin: 09/27/24 20:31 Dose: 40 mg Documented By: Admin: 09/26/24 20:36 Dose: Not Given Documented By: Admin: 09/25/24 21:36 Dose: Not Given Documented By: THAI Gabapentin (Gabapentin 800 Mg Tab) 800 mg PO TID PRN PRN Reason: Pain Stop: 10/25/24 20:31 Last Admin: 09/27/24 23:04 Dose: 800 mg Documented By: Admin: 09/27/24 00:52 Dose: 800 mg Documented By: Admin: 09/26/24 16:21 Dose: 800 mg Documented By: AMPARO Gabapentin (Gabapentin 800 Mg Tab) 800 mg PO QAM [facility] Stop: 10/26/24 08:59 Last Admin: 09/28/24 07:50 Dose: 800 mg Documented By: Admin: 09/27/24 08:32 Dose: 800 mg Documented By: Admin: 09/26/24 08:13 Dose: 800 mg Documented By: GREGG Hydromorphone HCl (Hydromorphone Inj 0.5 Mg/0.5 Ml Syr) 0.25 mg IV NOW ONE Stop: 09/25/24 20:05 Last Admin: 09/25/24 20:26 Dose: 0.25 mg Documented By: ELVIN Hydromorphone HCl (Hydromorphone Inj 0.5 Mg/0.5 Ml Syr) 0.25 mg IV Q6H PRN PRN Reason: Pain Stop: 10/10/24 00:58 Last Admin: 09/26/24 08:08 Dose: 0.25 mg Documented By: Admin: 09/26/24 01:08 Dose: 0.25 mg Documented By: SEAN Hydromorphone HCl (Hydromorphone Inj 0.5 Mg/0.5 Ml Syr) 0.25 mg IV Q4H PRN PRN Reason: Pain Stop: 10/10/24 00:58 Last Admin: 09/28/24 16:05 Dose: 0.25 mg Documented By: Admin: 09/28/24 10:42 Dose: 0.25 mg Documented By: Admin: 09/28/24 04:04 Dose: 0.25 mg Documented By: Admin: 09/27/24 23:21 Dose: 0.25 mg Documented By: Admin: 09/27/24 19:20 Dose: 0.25 mg Documented By: Admin: 09/27/24 13:46 Dose: 0.25 mg Documented By: Admin: 09/27/24 09:04 Dose: 0.25 mg Documented By: Admin: 09/27/24 04:29 Dose: 0.25 mg Documented By: Admin: 09/27/24 00:28 Dose: 0.25 mg Documented By: Admin: 09/26/24 20:19 Dose: 0.25 mg Documented By: Admin: 09/26/24 16:56 Dose: 0.25 mg Documented By: AMPARO Hydromorphone HCl (Hydromorphone Inj 0.5 Mg/0.5 Ml Syr) 0.25 mg IV NOW STA Stop: 09/26/24 12:00 Last Admin: 09/26/24 12:37 Dose: 0.25 mg Documented By: AMPARO Sodium Chloride (Nss) 1,000 mls @ 999 mls/hr IV .Q1H1M ONE Stop: 09/25/24 16:35 Last Infusion: 09/25/24 17:45 Dose: Infused Documented By: [facility] Admin: 09/25/24 15:46 Dose: 999 mls/hr Documented By: LUC Sodium Chloride (Nss) 1,000 mls @ 150 mls/hr IV .Q6H40M [facility] Stop: 09/26/24 18:59 Last Infusion: 09/26/24 22:44 Dose: Infused Documented By: Admin: 09/26/24 15:59 Dose: 150 mls/hr Documented By: Infusion: 09/26/24 15:47 Dose: Infused Documented By: Admin: 09/26/24 09:06 Dose: 150 mls/hr Documented By: Infusion: 09/26/24 09:06 Dose: Infused Documented By: Admin: 09/26/24 02:41 Dose: 150 mls/hr Documented By: Infusion: 09/26/24 02:40 Dose: Infused Documented By: Admin: 09/25/24 19:14 Dose: 150 mls/hr Documented By: ELVIN Piperacillin Sod/Tazobactam Sod (Zosyn) 4.5 gm in 100 mls @ 25 mls/hr IV Q8H [facility]; Protocol Stop: 10/03/24 02:59 Last Admin: 09/28/24 16:48 Dose: Not Given Documented By: Infusion: 09/28/24 14:20 Dose: Infused Documented By: Admin: 09/28/24 10:42 Dose: 25 mls/hr Documented By: Infusion: 09/28/24 07:16 Dose: Infused Documented By: Admin: 09/28/24 03:05 Dose: 25 mls/hr Documented By: Infusion: 09/27/24 23:02 Dose: Infused Documented By: Admin: 09/27/24 18:31 Dose: 25 mls/hr Documented By: Infusion: 09/27/24 15:20 Dose: Infused Documented By: Admin: 09/27/24 11:17 Dose: 25 mls/hr Documented By: Infusion: 09/27/24 07:25 Dose: Infused Documented By: Admin: 09/27/24 03:23 Dose: 25 mls/hr Documented By: Infusion: 09/26/24 22:37 Dose: Infused Documented By: Admin: 09/26/24 18:36 Dose: 25 mls/hr Documented By: Infusion: 09/26/24 16:00 Dose: Infused Documented By: Admin: 09/26/24 11:58 Dose: 25 mls/hr Documented By: Infusion: 09/26/24 06:36 Dose: Infused Documented By: Admin: 09/26/24 02:55 Dose: 25 mls/hr Documented By: SEAN Piperacillin Sod/Tazobactam Sod (Zosyn) 4.5 gm in 100 mls @ 200 mls/hr IV ONE ONE; Protocol Stop: 09/25/24 21:29 Last Infusion: 09/25/24 22:15 Dose: Infused Documented By: imaging assistant: 09/25/24 21:33 Dose: 200 mls/hr Documented By: THAI Insulin Aspart (Insulin Aspart Per Unit Charge) 0 units SC Q6H [facility] Stop: 10/26/24 00:00 Last Admin: 09/26/24 12:40 Dose: Not Given Documented By: Admin: 09/26/24 06:03 Dose: Not Given Documented By: Admin: 09/26/24 00:37 Dose: Not Given Documented By: SEAN Co-signed By: [facility] Insulin Aspart (Insulin Aspart Per Unit Charge) 0 units SC ACHS [facility] Stop: 10/26/24 12:44 Last Admin: 09/28/24 17:17 Dose: 8 units Documented By: COMPA Co-signed By: [facility] Admin: 09/28/24 12:18 Dose: 12 units Documented By: COMPA Co-signed By: GERMÁN Admin: 09/28/24 08:32 Dose: 16 units Documented By: COMPA Co-signed By: [facility] Admin: 09/27/24 20:34 Dose: Not Given Documented By: Admin: 09/27/24 17:27 Dose: 8 units Documented By: AMPARO Co-signed By: [facility] Admin: 09/27/24 12:18 Dose: 10 units Documented By: AMPARO Co-signed By: [facility] Admin: 09/27/24 08:29 Dose: 21 units Documented By: AMPARO Co-signed By: [facility] Admin: 09/26/24 20:34 Dose: 7 units Documented By: VANIA Co-signed By: CHAVA Admin: 09/26/24 17:10 Dose: 15 units Documented By: AMPARO Co-signed By: HAYDER Admin: 09/26/24 13:19 Dose: 7 units Documented By: AMPARO Co-signed By: DIAN Insulin Glargine (Lantus Per Unit Charge) 10 units SQ BID [facility] Stop: 10/25/24 21:14 Last Admin: 09/25/24 21:32 Dose: 10 units Documented By: THAI Co-signed By: ELVIN Insulin Glargine (Lantus Per Unit Charge) 15 units SQ DAILY [facility] Stop: 10/26/24 12:29 Last Admin: 09/26/24 13:19 Dose: 15 units Documented By: AMPARO Co-signed By: DIAN Insulin Glargine (Lantus Per Unit Charge) 0 units SQ HS [facility]; Protocol Stop: 10/26/24 20:59 Last Admin: 09/27/24 20:31 Dose: 8 units Documented By: CHRISTO Co-signed By: TAYE Admin: 09/26/24 20:34 Dose: 15 units Documented By: VANIA Co-signed By: CHAVA Insulin Glargine (Lantus Per Unit Charge) 22 units SQ DAILY [facility] Stop: 09/27/24 09:01 Last Admin: 09/27/24 08:29 Dose: 22 units Documented By: AMPARO Co-signed By: AYSE Insulin Glargine (Lantus Per Unit Charge) 22 units SQ DAILY [facility] Stop: 10/28/24 08:59 Last Admin: 09/28/24 08:32 Dose: 22 units Documented By: COMPA Co-signed By: AYSE Insulin Human Regular (Novolin-R Insulin Per Unit Charge) 10 units IV NOW STA Stop: 09/25/24 15:36 Last Admin: 09/25/24 16:02 Dose: Not Given Documented By: LUC Insulin Human Regular (Novolin-R Insulin Per Unit Charge) 8 units SC NOW STA Stop: 09/25/24 15:47 Last Admin: 09/25/24 16:01 Dose: 8 units Documented By: LUC Co-signed By: KEVAN Insulin Human Regular (Novolin-R Insulin Per Unit Charge) 10 units SC NOW STA Stop: 09/25/24 18:53 Last Admin: 09/25/24 19:23 Dose: 10 units Documented By: ELVIN Co-signed By: RADHA Ioversol (Optiray 320 100ml) 90 ml IV ONCE ONE Stop: 09/25/24 16:16 Last Admin: 09/25/24 16:16 Dose: 90 ml Documented By: ABBY Lisinopril (Lisinopril 5 Mg Tab) 5 mg PO [facility] Stop: 10/27/24 08:59 Last Admin: 09/28/24 07:21 Dose: 5 mg Documented By: Admin: 09/27/24 08:36 Dose: 5 mg Documented By: AMPARO Loperamide HCl (Loperamide Hcl 2 Mg Cap) 2 mg PO NOW STA Stop: 09/26/24 00:53 Last Admin: 09/26/24 01:08 Dose: 2 mg Documented By: SEAN Morphine Sulfate (Morphine Sulfate 4 Mg/Ml 1 Ml Carp\\Vial) 4 mg IV NOW STA Stop: 09/25/24 16:43 Last Admin: 09/25/24 16:47 Dose: 4 mg Documented By: LUC Ondansetron HCl (Ondansetron Inj 2 Mg/Ml 2 Ml Vial) 4 mg IV NOW STA Stop: 09/25/24 16:43 Last Admin: 09/25/24 16:46 Dose: 4 mg Documented By: LUC Ondansetron HCl (Ondansetron Inj 2 Mg/Ml 2 Ml Vial) 4 mg IV Q6H PRN PRN Reason: Nausea Stop: 10/25/24 20:31 Last Admin: 09/27/24 13:10 Dose: 4 mg Documented By: AMPARO Oxycodone HCl (Oxycodone Hcl Ir 5 Mg Tab (Immediate Release)) 10 mg PO Q6H PRN PRN Reason: Pain Stop: 10/11/24 14:42 Last Admin: 09/28/24 18:02 Dose: 10 mg Documented By: Admin: 09/28/24 12:17 Dose: 10 mg Documented By: Admin: 09/28/24 07:26 Dose: 10 mg Documented By: Admin: 09/28/24 00:50 Dose: 10 mg Documented By: Admin: 09/27/24 17:31 Dose: 10 mg Documented By: AMPARO Pantoprazole Sodium (Pantoprazole 40 Mg Tab) 40 mg PO QA [facility] Stop: 10/26/24 08:59 Last Admin: 09/28/24 07:21 Dose: 40 mg Documented By: Admin: 09/27/24 08:31 Dose: 40 mg Documented By: Admin: 09/26/24 08:11 Dose: 40 mg Documented By: GREGG Sucralfate (Sucralfate 1 Gm/10 Ml Udc) 1 gm PO QID [facility] Stop: 10/25/24 20:59 Last Admin: 09/28/24 16:47 Dose: 1 gm Documented By: Admin: 09/28/24 12:17 Dose: 1 gm Documented By: Admin: 09/28/24 07:20 Dose: 1 gm Documented By: Admin: 09/27/24 20:31 Dose: 1 gm Documented By: Admin: 09/27/24 17:26 Dose: 1 gm Documented By: Admin: 09/27/24 12:21 Dose: 1 gm Documented By: Admin: 09/27/24 08:30 Dose: 1 gm Documented By: Admin: 09/26/24 20:19 Dose: 1 gm Documented By: Admin: 09/26/24 16:57 Dose: 1 gm Documented By: Admin: 09/26/24 13:22 Dose: 1 gm Documented By: Admin: 09/26/24 08:12 Dose: 1 gm Documented By: Admin: 09/25/24 21:32 Dose: 1 gm Documented By: THAI Tramadol HCl (Tramadol Hcl 50 Mg Tablet) 100 mg PO Q6H PRN PRN Reason: moderate pain Stop: 10/27/24 08:14 Last Admin: 09/27/24 12:16 Dose: 100 mg Documented By: AMPARO Imaging Data Radiologist's Impression: Abdomen/Pelvis CT 09/25/24 15:35 INDICATION: Abdominal pain and bloody stools. COMPARISON: No relevant priors available. TECHNIQUE: Axial CT images of the abdomen and pelvis were obtained following IV contrast administration. Coronal and sagittal reformations were reviewed. FINDINGS: Subsegmental atelectasis in the lung bases. Hepatic steatosis. The gallbladder is surgically absent. The spleen, pancreas and adrenal glands appear unremarkable. No hydronephrosis. No evidence of bowel obstruction/appendicitis. Mildly dilated small bowel loops in the left lower quadrant. No pneumatosis or portal venous gas. No free air. No drainable fluid collection. Atheromatous plaquing of the abdominal aorta without dissection or aneurysm. Mild urinary bladder distention. Small fat-containing bilateral inguinal hernias. No acute osseous abnormality evident. IMPRESSION: 1. Mildly dilated small bowel loops in the left lower quadrant could relate to ileus or obstruction. No pneumatosis/portal venous gas or free air. 2. Hepatic steatosis. 3. Small fat-containing bilateral inguinal hernias. Electronically signed by Des Donald 09-25-2024 5:08 PM Chest X-Ray 09/25/24 15:35 XR chest 1V portable CLINICAL HISTORY: weakness COMPARISON STUDY: No previous studies for comparison. FINDINGS: Intracanalicular electrodes are incidentally noted. There is mild elevation of the right hemidiaphragm. Associated right basilar opacity favors atelectasis. No consolidation to suggest pneumonia. There is no evidence for pulmonary edema. Cardiomediastinal silhouette is unremarkable. IMPRESSION: 1. No acute cardiopulmonary findings. 2. Mild elevation of the right hemidiaphragm. Associated right basilar densities favor atelectasis. ACT 112: Negative or not required by law. Electronically signed by: Sergio Andrew M.D. 09/25/2024 3:49 PM Foot X-Ray 09/25/24 16:29 Clinical History: Diabetic ulcer 3 views of the left foot are submitted for review. Findings: There is sclerosis and deformity of the second metatarsal head. No subluxation or dislocation is seen. No significant arthritic changes are noted. There are dorsal and plantar calcaneal spurs. No other osseous abnormality is identified. There are no radiopaque foreign bodies. Vascular calcifications are present. Impression: 1. Sclerosis and deformity of the second metatarsal head, which could be due to old trauma 2. Calcaneal spurs 3. No definite acute pathology Electronically signed by Dariel Mauro 09-25-2024 5:13 PM Discharge Plan Visit Data Chief Complaint: Skin Problem Stated Complaint: DIABETIC, BLISTER ON LT FOOT, ILLNESS ED Provider: Ade Ramirez Discharge Problem: Vomiting and diarrhea, Hyperglycemia due to type 2 diabetes mellitus, Diabetic foot ulcer Patient Disposition: Admitted As Inpatient Discharge Instructions Interventions: ED Discharge Assessment Last Done: 09/25/24 20:32 Discharge Problem: Hyperglycemia due to type 2 diabetes mellitus Qualifiers: Diabetes mellitus terminal supervisor insulin use: with longterm use Qualified Code(s): E11.65 - Type 2 diabetes mellitus with hyperglycemia; Z79.4 - correction (current) use of insulin Diabetic foot ulcer Qualifiers: Diabetic foot ulcer location: midfoot Diabetes mellitus type: type 2 L aterality: left Non-pressure ulcer stage: with fat layer exposed Qualified Code(s): E11.621 - Type 2 diabetes mellitus with foot ulcer; L97.422 - Non- pressure 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
--- NOTE | 2024-09-25 23:32 | CT Scan Report ---
Exam(s): CT LEFT FOOT W/WO Contrast IV Amt: 90 ml optiray 320 EXAM: CT Left Lower Extremity Without and With Intravenous Contrast, Foot CLINICAL HISTORY: Reason for exam: Diabetic foot ulcer. TECHNIQUE: Axial computed tomography images of the left foot without and with intravenous contrast. CTDI is 60 mGy and DLP is 1062.62 mGy-cm. Automated exposure control was utilized for the study. A dose lowering technique was utilized adhering to the principles of ALARA. CONTRAST: Patient received 90 ml optiray 320 of IV contrast COMPARISON: No relevant prior studies available. FINDINGS: Bones/joints: No evidence of acute osteomyelitis. Sequela of second metatarsal head osteonecrosis with degenerative changes at the second MTP joint. No dislocation. Soft tissues: Forefoot pressure wound with an ulcer subjacent to the first MTP joint. No soft tissue gas. No abscess. No radiopaque foreign body. Vasculature: Advanced atherosclerotic calcifications. IMPRESSION: 1. No evidence of acute osteomyelitis. 2. Forefoot pressure wound with an ulcer subjacent to the first MTP joint. Electronically signed by: Damien Lopez MD 09/25/24 23:31 PM
[2024-09-26 00:11] LABS: Adenovirus F 40/41 PCR Not Detected (NotDetected); Astrovirus PCR Not Detected (NotDetected); Campylobacter PCR Not Detected (NotDetected); Cryptosporidium PCR Not Detected (NotDetected); Cyclospora cayetanensis PCR Not Detected (NotDetected); Entamoeba histolytica PCR Not Detected (NotDetected); Enteroaggregative E.coli(EAEC) Not Detected (NotDetected); Enteropathogenic E.coli (EPEC) Not Detected (NotDetected); Enterotoxigenic E.coli (ETEC) Not Detected (NotDetected); Giardia lamblia PCR Not Detected (NotDetected); Norovirus GI/GII PCR Not Detected (NotDetected); Plesiomonas shigelloides PCR Not Detected (NotDetected); Rotavirus A PCR Not Detected (NotDetected); Salmonella PCR Not Detected (NotDetected); Sapovirus PCR Not Detected (NotDetected); Shiga-like Toxin E.coli (STEC) Not Detected (NotDetected); Shigella/Enteroinvasive E.coli Not Detected (NotDetected); Vibrio cholerae PCR Not Detected (NotDetected); Vibrio species PCR Not Detected (NotDetected); Yersinia enterocolitica PCR Not Detected (NotDetected)
[2024-09-26] MEDS: INSULIN ASPART PER UNIT CHARGE SC SCH ×2 (00:37→13:19)
[2024-09-26] MEDS: HYDROmorphone INJ 0.5 MG/0.5 ML SYR IV PRN ×2 (01:08→16:56)
[2024-09-26] MEDS: LOPERAMIDE HCL 2 MG CAP PO STA (01:08)
[2024-09-26] MEDS ORDERED: INSULIN ASPART PER UNIT CHARGE SC SCH (02:00)
[2024-09-26] MEDS: PIPERACILLIN/TAZOBACTAM 4.5 GM/100 ML BAG IV SCH (02:55)
[2024-09-26 07:49] LABS: Hematocrit (blood only) 41.9 % (42.0-52.0); Hemoglobin 14.2 g/dl (14.0-18.0); Mean Corpuscular Hemoglobin 28.5 pg (25.0-34.0); Mean Corpuscular Hgb Conc 33.9 g/dL (32.0-36.0); Mean Corpuscular Volume 84.1 fL (80.0-100.0); Mean Platelet Volume 10.5 fL (9.4-12.4); Platelet Count 245 K/uL (130-400); RDW Coefficient of Variation 13.6 % (11.5-14.5); Red Blood Count 4.98 M/uL (4.70-6.10); White Blood Count 11.48 K/ul (4.8-10.8)
[2024-09-26 08:08] LABS: BUN Creatinine Ratio 9.8 (10-20); Calcium 8.1 mg/dl (8.6-10.3); Creatinine Clr Calc Pharmacy 151.4 ml/min; Potassium 3.8 mmol/L (3.5-5.1)
[2024-09-26] MEDS: EZETIMIBE 10 MG TAB PO SCH (08:11)
[2024-09-26] MEDS: PANTOprazole 40 MG TAB PO SCH (08:11)
[2024-09-26] MEDS: GABAPENTIN 800 MG TAB PO SCH (08:13)
[2024-09-26] MEDS: ATORVASTATIN 20 MG TAB PO SCH (08:55)
--- NOTE | 2024-09-26 09:29 | Hospitalist Progress Note ---
Date of Service September 26, 2024 Assessment & Plan (1) Hyperglycemia due to type 2 diabetes mellitus: (2) Type 2 diabetes mellitus: (3) Diabetic foot ulcer: (4) Vomiting and diarrhea: (5) Hyponatremia: Plan 54-year-old male PMHx T2DM insulin-dependent, Crohn's disease, dyslipidemia, and GERD presenting for a left foot blister that has been ongoing for the past 5 weeks and has not gotten better. Patient is from [place], has recently moved to the area. Also having vomiting and diarrhea with every meal. Pt has leukocytosis 12.92 on arrival, ESR 24, and Na 130 with initial glucose 557, alkaline phos 181. CTAP with mildly dilated small bowel loops in LLQ, ileus or obstruction, hepatic steatosis, small fat-containing bilateral inguinal hernias; CXR without acute findings, but mild elevation of the R hemidiaphragm; L foot x- ray with sclerosis and deformity of the second metatarsal head could be due to old trauma, calcaneal spurs, but no acute findings. Patient received 2L NSS, Zofran 4 mg IV, morphine 4 mg IV, and 18 units of insulin in ED. #uncontrolled diabetes type 2, insulin-dependent H/o DMT2; home regimen Lantus 30U every AM, Ozempic 2 mg SC weekly. Upon arrival, glucose 557. Received 18U insulin and total, most recent glucose 325. Has been eating poorly over the past 2 days given traveling from [place] to [place], did take insulin on the morning of arrival. - Pending A1c - SSI with target BSG range 110-140mg/dL, CF 40, carb ratio 15; Lantus 15 BID - Hold Ozempic while inpatient - BSG ACHS - Pharm glycemic management consult placed, appreciate assistance- Adjust regimen as needed #Diabetic foot ulcer, left h/o DMT2 with previous foot wound complicated by gangrene; started ~ 5 weeks ago -Mild leukocytosis no evidence of osteomyelitis on x-ray pending wound culture -CT of left foot 09/25/2024, also no evidence of osteomyelitis pressure ulcer seen near first MTP NO MRI completed given metal plate in back and noncompatible with MRI - Zosyn; Wound care prn - +/- infectious disease consult pending clinical improvement; no consult placed at time of admission #Vomiting + Diarrhea/? Ileus/Crohn's disease/GERD Vomiting every morning for the past 3 months, with abdominal pain at L side. Diarrhea x 1.5 months with blood streaking in stool, abdominal pain with BM. History of Crohn's disease, no medications for such. Last colonoscopy ~ 3 years ago, polyps identified by noncancerous. No sick contacts. No recent antibiotics. ? gastroparesis causing symptoms. - CTAP with mildly dilated small bowel loops in LLQ (ileus or obstruction), hepatic steatosis, and bilateral inguinal hernias - negative stool BioFire and C. difficile testing - Sucralfate added; increased omeprazole to 40mg - NPO; continue IVF - Consider GI consult #Hyponatremia-resolved secondary to hyperglycemia; currently asymptomatic and euvolemic clinically #Dyslipidemia- home meds Atorvastatin, ezetimibe on hold Case management consulted- PCP for patient + given recent move to [place] VTE prophylaxis: Lovenox Admission and Anticipated Discharge Date Admission Date: September 25, 2024 Supervising Physician Co-Signing Physician Notes Patient was seen and examined independently I discussed the case with Shannon HENRY I reviewed pertinent past medical social family history and also the plan of care and agree with the plan of care. D4-year-old male recently moved from [place] history of diabetes. Patient was noncompliant on his travels. He said 5 weeks preceding history of a ulcer on his left dorsal foot which is developed into an ulcer preceding nausea and vomiting and general illness. He is admitted with a diabetic foot ulcer no signs of osteomyelitis. Patient had cultures in the emergency department initiated on Zosyn therapy. Images did not show osteomyelitis as mentioned including CT scan. Physical exam patient's nausea and vomiting had improved he is asking for food his blood glucose has come down with appropriate insulin therapy and wound consult is undertaken for appropriate wound care. The patient is new to the area and will need to be connected with post acute care follow-up This time continue intravenous Zosyn therapy awaiting wound care and amending insulin treatment Reviewed laboratory test personally discussed case with wound care nurse Any exceptions will be noted below Subjective Patient is feeling better he has less nausea vomiting and leg pain although still requiring some parenteral pain control for leg. Physical Exam Physical Exam: Physical exam shows his ulcer to be once again without much infection he has good pulses in his leg does not appear to be overt signs of cellulitis Results & Data Results & Data Vital Signs (Past 12 Hours) Vital Signs Pulse Pulse Resp BP Pulse Ox O2 Del Method 02/19/25 07:09 76 09/26/24 06:32 78 18 140/86 96 Room Air 09/26/24 05:28 102 H 09/25/24 23:24 81 20 121/80 95 Room Air 09/25/24 21:20 83 19 140/92 94 Room Air Laboratory Results Reviewed CBC reviewed chemistry PG Care Time/CCT Total # of Minutes Spent Total Time Spent with Patient: Total time spent is greater than 50% in coordination of care (as documented) at patient's floor/unit and/or counseling patient: Coding Level of Care Code 50330 SUB INP/OBS CARE 3/50MIN Diagnoses Hyperglycemia due to type 2 diabetes mellitus E11.65 Type 2 diabetes mellitus E11.9 Diabetic foot ulcer E11.621; L97.509 Vomiting and diarrhea R11.10; R19.7 Hyponatremia E87.1
--- NOTE | 2024-09-26 11:14 | Pharmacy Report ---
Pharmacy Glycemic Short Note 2 - Date of Service September 26, 2024 - Glycemic Short BSG Results (Last 24 hours): 09/25/24 09/25/24 09/25/24 14:16 15:44 17:23 Glucose 557 H* POC Glucose 399 H* 325 H* 09/25/24 09/25/24 09/26/24 19:18 22:46 00:35 Glucose POC Glucose 234 H 114 H 98 09/26/24 09/26/24 05:59 07:18 Glucose 138 H POC Glucose 121 H OUTPATIENT ANTIDIABETIC REGIMEN: * Lantus 30 units, ozempic 2 mg SQ weekly ASSESSMENT: * 54 year old admitted with diabetic foot ulcer, N/V/D - with poor PO intake last couple of days. Type 2 diabetic - pharmacy consulted for glycemic management. BSGs elevated on arrival to ER >300. Received IV insulin bolus. 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 * Fasting BSG 138 mg/dL - NPO this AM, but now starting diet with lunch time, will resume Lantus at lunch - will trial 10-15 units bid for now. May need to titrate insulin further. A1c pending. PLAN FOR INPATIENT GLYCEMIC CONTROL: * Hold outpatient oral diabetes medications * Basal insulin * Lantus 10-15 units SQ BID * Bolus insulin * NovoLog per scale ACHS or Q6hrs while NPO * Goal Range: Low 90-140 mg/dL - High 140 mg/dL * Correction Factor: 40 mg/dL/unit * Nutritional / Prandial insulin per carb ratio of 1 unit per 15 grams CHO consumed
[2024-09-26 11:34] LABS: Estimated Average Glucose 283 mg/dl; Hemoglobin A1C 11.5 % (4.5-5.6)
[2024-09-26] MEDS: HYDROmorphone INJ 0.5 MG/0.5 ML SYR IV STA (12:37)
[2024-09-26] MEDS: LANTUS PER UNIT CHARGE SQ SCH ×2 (13:19→20:34)
--- NOTE | 2024-09-26 16:03 | Hospitalist Progress Note ---
Date of Service September 26, 2024 Assessment & Plan (1) Hyperglycemia due to type 2 diabetes mellitus: (2) Type 2 diabetes mellitus: (3) Diabetic foot ulcer: (4) Vomiting and diarrhea: (5) Hyponatremia: Plan 54-year-old male PMHx T2DM insulin-dependent, Crohn's disease, dyslipidemia, and GERD presenting for a left foot blister that has been ongoing for the past 5 weeks and has not gotten better. Patient is from [place], has recently moved to the area. Also having vomiting and diarrhea with every meal. Pt has leukocytosis 12.92 on arrival, ESR 24, and Na 130 with initial glucose 557, alkaline phos 181. CTAP with mildly dilated small bowel loops in LLQ, ileus or obstruction, hepatic steatosis, small fat-containing bilateral inguinal hernias; CXR without acute findings, but mild elevation of the R hemidiaphragm; L foot x- ray with sclerosis and deformity of the second metatarsal head could be due to old trauma, calcaneal spurs, but no acute findings. Patient received 2L NSS, Zofran 4 mg IV, morphine 4 mg IV, and 18 units of insulin in ED. Uncontrolled Type II Diabetes Mellitus, insulin-dependent: H/o DMT2; home regimen Lantus 30U every AM, Ozempic 2 mg SC weekly. Upon arrival, glucose 557. Received 18U insulin and total, most recent glucose 325. Has been eating poorly over the past 2 days given traveling from [place] to [place], did take insulin on the morning of arrival. - Hemoglobin A1C is 11.5. 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 Consider arterial doppler s/p index. Consider podiatry consult. - Wound culture showing Staph Aureus. Continue Zosyn. #Vomiting + Diarrhea/? Ileus/Crohn's disease/GERD: - Vomiting every morning for the past 3 months, with abdominal pain at L side. Diarrhea x 1.5 months with blood streaking in stool, abdominal pain with BM. History of Crohn's disease, no medications for such. Last colonoscopy ~ 3 years ago, polyps identified by noncancerous. No sick contacts. No recent antibiotics. ? gastroparesis causing symptoms. - CTAP with mildly dilated small bowel loops in LLQ (ileus or obstruction), hepatic steatosis, and bilateral inguinal hernias - negative stool BioFire and C. difficile testing - Sucralfate added; increased omeprazole to 40mg - Transitioned from NPO to Clear liquids 9:45 am. Tolerating well and requesting diet increase. Currently denies N/V - Consider GI consult #Hyponatremia-resolved secondary to hyperglycemia; currently asymptomatic and euvolemic clinically #Dyslipidemia- home meds Atorvastatin, ezetimibe on hold Case management consulted- PCP for patient + given recent move to [place] VTE prophylaxis: Lovenox Admission and Anticipated Discharge Date Admission Date: September 25, 2024 Supervising Physician Co-Signing Physician Notes Patient was seen and examined independently I discussed the case with Shannon HENRY I reviewed pertinent past medical social family history and also the plan of care and agree with the plan of care. D4-year-old male recently moved from [place] history of diabetes. Patient was noncompliant on his travels. He said 5 weeks preceding history of a ulcer on his left dorsal foot which is developed into an ulcer preceding nausea and vomiting and general illness. He is admitted with a diabetic foot ulcer no signs of osteomyelitis. Patient had cultures in the emergency department initiated on Zosyn therapy. Images did not show osteomyelitis as mentioned including CT scan. Physical exam patient's nausea and vomiting had improved he is asking for food his blood glucose has come down with appropriate insulin therapy and wound consult is undertaken for appropriate wound care. The patient is new to the area and will need to be connected with post acute care follow-up This time continue intravenous Zosyn therapy awaiting wound care and amending insulin treatment Reviewed laboratory test personally discussed case with wound care nurse Any exceptions will be noted below Subjective Patient reports left great toe pain/wound that started about 5 weeks ago, but has worsened. He reports a past history of "gangrene" in left foot that was treated with 10 months of wound care to avoid amputation. He states the pain feels similar to when it was infected in the past. He has history of insulin dependent type II diabetes, states his last A1C was 7.0 and that he checks blood sugars once/day, with no readings under 150. He states he was following low carb diet prior to [address] to [place] from [place]. He also reports taking dose of ozempic yesterday. Patient was also experiencing vomiting and diarrhea, states he is not currently vomiting and has had episodes of diarrhea with streaks of blood. He reports nausea and LLQ abdominal pain. Patient was NPO, requesting food at 9:45 am. . He denies any additional sx. Review of Systems 2 Constitutional: Denies fevers/chills, malaise. Reports weight loss Eyes: Denies blurry/double vision. Ear, Nose, Mouth, Throat: denies ear pain, sinus pain/drainage, dysphagia, loss of smell/taste. Respiratory: denies cough, sob, ROBERTO, orthopnea, wheezing, Cardiovascular: Additional Comments: denies chest pain, palpitations, syncope, presyncope, swelling of legs/hands/feet Gastrointestinal: reports abdominal pain, nausea, diarrhea with hematocheizia. denies current vomiting, melena, hematemesis, constipation, bloating, dyspepsia, indigestion Genitourinary: no dysuria, no difficulty urinating, no urinary hesitancy, no decreased urination, no hematuria or no flank pain Musculoskeletal: reports left great toe pain. denies joint pain/stiffness/swelling, myalgias, Integumentary: reports open wound of left great toe. denies bleeding, discharge, bruising, rash, redness, color change. Neurologic: denies DIAZ, dizziness, gait disurbance, numbness/tingling, weakness, confusion. Psychiatric: denies SI/HI. Hematologic / Lymphatic: denies swollen glands, Allergy / Immunological: denies hx of symptoms. Physical Exam 2 Physical Exam: General: No acute distress Skin: Warm and dry; no rashes or lesions aside from L foot; L MTP w/ quarter sized ulceration, pink in center and yellow, dry skin around border, no oozing; no streaking; mild edema in surrounding area. Head: Normocephalic, atraumatic Eyes: PERRL, conjunctivae clear, sclera non-icteric; EOM intact ENT: External ear and ear canal without swelling; nose atraumatic; fair dentition, tongue normal appearance, pharynx normal Neck: Supple, no LAD; no JVD Cardio: RRR, no M/G/R, S1 and S2 normal Resp: No respiratory distress, Lungs CTA in all lobes bilaterally, no wheezes, rales, or rhonchi Abdomen: Soft, symmetric, mild tenderness to palpation L quadrant, no guarding or rebound tenderness; No distention; No masses or hepatosplenomegaly; Bowel sounds normoactive MSK: No deformities, full ROM throughout; pulses palpable and equal Neuro: Awake, alert; Muscle strength 5/5 bilaterally in UE/LE; Sensation intact bilaterally; CN grossly intact Psych: Appropriate mood and affect; good judgement and insight. present in room at time of visit. Results & Data Results & Data Vital Signs (Past 12 Hours) Vital Signs Temp Pulse Pulse Pulse Resp BP BP 09/26/24 12:30 36.4 C L 78 16 171/96 H 09/26/24 10:00 71 16 134/82 09/26/24 09:30 83 15 158/97 H 09/26/24 09:00 72 18 135/85 09/26/24 08:30 77 22 127/95 09/26/24 08:00 72 12 145/78 H 09/26/24 07:09 76 09/26/24 07:00 75 18 131/80 09/26/24 06:32 78 18 140/86 09/26/24 05:28 102 H Pulse Ox O2 Del Method 09/26/24 12:30 96 Room Air 09/26/24 10:00 97 Room Air 09/26/24 09:30 96 Room Air 09/26/24 09:00 96 Room Air 09/26/24 08:30 96 Room Air 09/26/24 08:00 95 Room Air 09/26/24 07:09 09/26/24 07:00 94 Room Air 09/26/24 06:32 96 Room Air 09/26/24 05:28 Laboratory Results 09/25/24 18:10 Gram Stain - Final Foot,Left Aerobic and Anaerobic Culture - Preliminary Staphylococcus aureus Staphylococcus aureus#2 09/26/24 09/26/24 09/26/24 16:38 12:23 07:18 WBC 11.48 H RBC 4.98 Hgb 14.2 Hct 41.9 L MCV 84.1 MCH 28.5 MCHC 33.9 RDW Std Deviation 42.0 RDW Coeff of Cristhian 13.6 Plt Count 245 MPV 10.5 Sodium 137 Potassium 3.8 Chloride 108 H Carbon Dioxide 24 Anion Gap 5 BUN 6 Creatinine 0.61 Est Cr Clr Drug Dosing 151.4 eGFR 114.14 BUN/Creatinine Ratio 9.8 L Glucose 138 H POC Glucose 289 H 175 H Estimat Average Glucose 283 Hemoglobin A1c 11.5 H Calcium 8.1 L Urine Color Urine Appearance Urine pH Ur Specific [place] Urine Protein Urine Glucose (UA) Urine Ketones Urine Blood Urine Nitrite Urine Bilirubin Urine Urobilinogen Ur Leukocyte Esterase Stl C. cayetanensis PCR Stool Rotavirus A PCR Stl Adenov F PCR Stool Astrovirus (PCR) Stool Campylobacter PCR Stl C. diff Tox B Gene Stool Cryptosporidium PCR Stl E.coli Shiga Tox PCR Stl Enterotoxigenic E PCR Stool EPEC (PCR) Stool EAEC (PCR) Stl E. histolytica PCR Stool Giardia Lamblia PCR Stool Salmonella PCR Stool Sapovirus (PCR) Stl P. shigelloides PCR Stl Shigella/EIEC PCR St Y.enterocolitica PCR Stool Vibrio (PCR) Stl Vibrio cholerae PCR Stl Norovirus GI/GII PCR 09/26/24 09/26/24 09/25/24 05:59 00:35 Unknown WBC RBC Hgb Hct MCV MCH MCHC RDW Std Deviation RDW Coeff of Cristhian Plt Count MPV Sodium Potassium Chloride Carbon Dioxide Anion Gap BUN Creatinine Est Cr Clr Drug Dosing eGFR BUN/Creatinine Ratio Glucose POC Glucose 121 H 98 Estimat Average Glucose Hemoglobin A1c Calcium Urine Color Urine Appearance Urine pH Ur Specific [place] Urine Protein Urine Glucose (UA) Urine Ketones Urine Blood Urine Nitrite Urine Bilirubin Urine Urobilinogen Ur Leukocyte Esterase Stl C. cayetanensis PCR Not Detected Stool Rotavirus A PCR Not Detected Stl Adenov F PCR Not Detected Stool Astrovirus (PCR) Not Detected Stool Campylobacter PCR Not Detected Stl C. diff Tox B Gene Negative Cdiff Gene Stool Cryptosporidium PCR Not Detected Stl E.coli Shiga Tox PCR Not Detected Stl Enterotoxigenic E PCR Not Detected Stool EPEC (PCR) Not Detected Stool EAEC (PCR) Not Detected Stl E. histolytica PCR Not Detected Stool Giardia Lamblia PCR Not Detected Stool Salmonella PCR Not Detected Stool Sapovirus (PCR) Not Detected Stl P. shigelloides PCR Not Detected Stl Shigella/EIEC PCR Not Detected St Y.enterocolitica PCR Not Detected Stool Vibrio (PCR) Not Detected Stl Vibrio cholerae PCR Not Detected Stl Norovirus GI/GII PCR Not Detected 09/25/24 09/25/24 09/25/24 22:46 19:18 17:23 WBC RBC Hgb Hct MCV MCH MCHC RDW Std Deviation RDW Coeff of Cristhian Plt Count MPV Sodium Potassium Chloride Carbon Dioxide Anion Gap BUN Creatinine Est Cr Clr Drug Dosing eGFR BUN/Creatinine Ratio Glucose POC Glucose 114 H 234 H 325 H* Estimat Average Glucose Hemoglobin A1c Calcium Urine Color Urine Appearance Urine pH Ur Specific [place] Urine Protein Urine Glucose (UA) Urine Ketones Urine Blood Urine Nitrite Urine Bilirubin Urine Urobilinogen Ur Leukocyte Esterase Stl C. cayetanensis PCR Stool Rotavirus A PCR Stl Adenov F PCR Stool Astrovirus (PCR) Stool Campylobacter PCR Stl C. diff Tox B Gene Stool Cryptosporidium PCR Stl E.coli Shiga Tox PCR Stl Enterotoxigenic E PCR Stool EPEC (PCR) Stool EAEC (PCR) Stl E. histolytica PCR Stool Giardia Lamblia PCR Stool Salmonella PCR Stool Sapovirus (PCR) Stl P. shigelloides PCR Stl Shigella/EIEC PCR St Y.enterocolitica PCR Stool Vibrio (PCR) Stl Vibrio cholerae PCR Stl Norovirus GI/GII PCR 09/25/24 16:35 WBC RBC Hgb Hct MCV MCH MCHC RDW Std Deviation RDW Coeff of Cristhian Plt Count MPV Sodium Potassium Chloride Carbon Dioxide Anion Gap BUN Creatinine Est Cr Clr Drug Dosing eGFR BUN/Creatinine Ratio Glucose POC Glucose Estimat Average Glucose Hemoglobin A1c Calcium Urine Color Yellow Urine Appearance Clear Urine pH 6.5 Ur Specific [place] 1.040 H Urine Protein Negative Urine Glucose (UA) 3+ H Urine Ketones Negative Urine Blood Negative Urine Nitrite Negative Urine Bilirubin Negative Urine Urobilinogen Negative Ur Leukocyte Esterase Negative Stl C. cayetanensis PCR Stool Rotavirus A PCR Stl Adenov F 40 PCR Stool Astrovirus (PCR) Stool Campylobacter PCR Stl C. diff Tox B Gene Stool Cryptosporidium PCR Stl E.coli Shiga Tox PCR Stl Enterotoxigenic E PCR Stool EPEC (PCR) Stool EAEC (PCR) Stl E. histolytica PCR Stool Giardia Lamblia PCR Stool Salmonella PCR Stool Sapovirus (PCR) Stl P. shigelloides PCR Stl Shigella/EIEC PCR St Y.enterocolitica PCR Stool Vibrio (PCR) Stl Vibrio cholerae PCR Stl Norovirus GI/GII PCR Diagnostic Findings Abdomen/Pelvis CT 09/25/24 15:35 INDICATION: Abdominal pain and bloody stools. COMPARISON: No relevant priors available. TECHNIQUE: Axial CT images of the abdomen and pelvis were obtained following IV contrast administration. Coronal and sagittal reformations were reviewed. FINDINGS: Subsegmental atelectasis in the lung bases. Hepatic steatosis. The gallbladder is surgically absent. The spleen, pancreas and adrenal glands appear unremarkable. No hydronephrosis. No evidence of bowel obstruction/appendicitis. Mildly dilated small bowel loops in the left lower quadrant. No pneumatosis or portal venous gas. No free air. No drainable fluid collection. Atheromatous plaquing of the abdominal aorta without dissection or aneurysm. Mild urinary bladder distention. Small fat-containing bilateral inguinal hernias. No acute osseous abnormality evident. IMPRESSION: 1. Mildly dilated small bowel loops in the left lower quadrant could relate to ileus or obstruction. No pneumatosis/portal venous gas or free air. 2. Hepatic steatosis. 3. Small fat-containing bilateral inguinal hernias. Electronically signed by Des Donald 09-25-2024 5:08 PM Foot X-Ray 09/25/24 16:29 Clinical History: Diabetic ulcer 3 views of the left foot are submitted for review. Findings: There is sclerosis and deformity of the second metatarsal head. No subluxation or dislocation is seen. No significant arthritic changes are noted. There are dorsal and plantar calcaneal spurs. No other osseous abnormality is identified. There are no radiopaque foreign bodies. Vascular calcifications are present. Impression: 1. Sclerosis and deformity of the second metatarsal head, which could be due to old trauma 2. Calcaneal spurs 3. No definite acute pathology Electronically signed by Dariel Mauro 09-25-2024 5:[address] 09/25/24 20:19 Exam(s): CT LEFT FOOT W/WO Contrast IV Amt: 90 ml optiray 320 EXAM: CT Left Lower Extremity Without and With Intravenous Contrast, Foot CLINICAL HISTORY: Reason for exam: Diabetic foot ulcer. TECHNIQUE: Axial computed tomography images of the left foot without and with intravenous contrast. CTDI is 60 mGy and DLP is 1062.62 mGy-cm. Automated exposure control was utilized for the study. A dose lowering technique was utilized adhering to the principles of ALARA. CONTRAST: Patient received 90 ml optiray 320 of IV contrast COMPARISON: No relevant prior studies available. FINDINGS: Bones/joints: No evidence of acute osteomyelitis. Sequela of second metatarsal head osteonecrosis with degenerative changes at the second MTP joint. No dislocation. Soft tissues: Forefoot pressure wound with an ulcer subjacent to the first MTP joint. No soft tissue gas. No abscess. No radiopaque foreign body. Vasculature: Advanced atherosclerotic calcifications. IMPRESSION: 1. No evidence of acute osteomyelitis. 2. Forefoot pressure wound with an ulcer subjacent to the first MTP joint. Electronically signed by: Damien Lopez MD 09/25/24 23:31 PM PG Care Time/CCT Total # of Minutes Spent Total Time Spent with Patient: Total time spent is greater than 50% in coordination of care (as documented) at patient's floor/unit and/or counseling patient: Coding Level of Care Code None Diagnoses Hyperglycemia due to type 2 diabetes mellitus E11.65 Type 2 diabetes mellitus E11.9 Diabetic foot ulcer E11.621; L97.509 Vomiting and diarrhea R11.10; R19.7 Hyponatremia E87.1
[2024-09-26] MEDS: ACETAMINOPHEN 325 MG TAB PO PRN (16:20)
[2024-09-26] MEDS: GABAPENTIN 800 MG TAB PO PRN (16:21)
--- NOTE | 2024-09-26 16:58 | Billing Data ---
Date of Service September 26, 2024 Coding Level of Care Code 58747 SUB INP/OBS CARE MIN
[2024-09-27] MEDS ORDERED: ACETAMINOPHEN 500 MG TAB PO PRN (08:09)
[2024-09-27 08:19] LABS: Hematocrit (blood only) 43.3 % (42.0-52.0); Hemoglobin 14.7 g/dl (14.0-18.0); Mean Corpuscular Hemoglobin 28.2 pg (25.0-34.0); Mean Corpuscular Hgb Conc 33.9 g/dL (32.0-36.0); Platelet Count 237 K/uL (130-400); RDW Coefficient of Variation 13.8 % (11.5-14.5); RDW Standard Deviation 41.4 fL (36.4-46.3); Red Blood Count 5.22 M/uL (4.70-6.10); White Blood Count 9.94 K/ul (4.8-10.8)
[2024-09-27] MEDS: LANTUS PER UNIT CHARGE SQ SCH (08:29)
[2024-09-27 08:32] LABS: BUN Creatinine Ratio 10.3 (10-20); Calcium 8.7 mg/dl (8.6-10.3); Creatinine Clr Calc Pharmacy 135.8 ml/min
[2024-09-27] MEDS: lisinopril 5 MG TAB PO SCH (08:36)
[2024-09-27] MEDS: traMADol HCL 50 MG TABLET PO PRN (12:16)
[2024-09-27] MEDS: ONDANSETRON INJ 2 MG/ML 2 ML VIAL IV PRN (13:10)
--- NOTE | 2024-09-27 13:13 | Podiatry Consultation ---
Date of Consultation September 27, 2024 Assessment & Plan (1) Diabetic ulcer of left foot associated with type 2 diabetes mellitus, with fat layer exposed: Diabetic foot ulcer location: unspecified part of foot Qualified Code(s): E11.621 - Type 2 diabetes mellitus with foot ulcer; L97.522 - Non- pressure chronic ulcer of other part of left foot with fat layer exposed (2) Loss of protective sensation of skin of foot: Plan Diabetic ulcer left foot: Relatively stable appearing diabetic foot ulcer with minimally exposed subcutaneous tissue. No clinical or imaging concerning for underlying osteomyelitis at this time. Bedside debridement of nonviable tissue as detailed below. Will consult orthotics and physical therapy to evaluate for appropriate offloading. -Soft tissue infection: Patient continues IV Zosyn. Pending continued clinical improvement okay for discharge on p.o. antibiotics from my standpoint. If patient should discharge prior to finalization of cultures I can continue to monitor as an outpatient and adjust antibiotics as needed. -Culture: Left foot wound culture 09/25/2024. Preliminary culture results positive for Staph aureus. -Imaging: CT and x-ray results of the left foot reviewed with no signs of osteomyelitis. -Offloading: Order placed for orthotics referral for cam walker. Patient wear the cam walker at all times while ambulating. -Dressing change: Cleanse wound once daily with normal sterile saline dry and dressed with Aquacel Ag and a bordered foam dressing. -Discharge planning: Patient should schedule follow-up in the wound center and diabetic foot clinic within 2 weeks of discharge. Wound center will continue to follow patient's wound as an outpatient with monitoring, debridement and dressing recommendations. Will see him in the diabetic foot clinic for offloading recommendations in the short-term, education on appropriate care of the diabetic foot and eventual transition to appropriate diabetic shoe gear to help prevent future ulceration. Surgical Excisional Debridement: Indication:Removal of necrotic tissue to promote healing Pre-op diagnosis: Diabetic ulcer subfirst metatarsal head left foot Post-op diagnosis: Same Procedure: Surgical excisional debridement diabetic ulcer subfirst metatarsal head left foot Surgeon: Gonzalo Kay DPM Anesthesia: None Bleeding:Minimal Disposition: Tolerated well Procedure: Informed verbal consent consent for bedside debridement of diabetic foot wound. Patient understands and agrees to procedure. Excisional debridement was carried out of diabetic ulcer plantar left foot consisting of hyperkeratotic, slough, fibrotic granular and subcutaneous tissue was carried out utilizing a curette and 15 blade. Anesthesia-none. Patient tolerated the procedure well. Bleeding-minimal. Controlled with-direct pressure. Post- debridement measurements: 1.3 x 1.5 x 0.4 cm. A total of 1.95 cm2 were debrided. History of Present Illness Reason for Consultation: Left Diabetic Foot Ulcer Attending Physician: Shoaib Bueno MD History of Present Illness Irving is a 54-year-old male with past medical history significant for type 2 diabetes with diabetic peripheral neuropathy, Crohn's, dyslipidemia, GERD. Recently moved to [facility] from [facility] is living on top of [facility] with his . Reports historically working hard on his diabetes watching his diet maintaining an A1c between 5 and 7 however over the past few months he admits he has not been monitoring his blood sugar closely and eating what ever he wants. A1c on admission 11.5. Presented to the [facility] emergency department with concern for infection associated with diabetic foot ulcer of the left foot. Ulcer has been present for approximately 5 weeks with no previous treatment. Reports nausea, vomiting and diarrhea. Denies shortness of breath chest pain fever. He reports history of ulceration in the same location approximately 2 years ago which required or based surgical debridement and 10 to 11 months of wound care before resolution. During that time he was offloading with a knee scooter. Reports improvement with nausea and vomiting since time of admission. Reports pain in the left foot at the ulceration with ambulation site despite neuropathy. Wound culture collected on admission preliminary result showing Staph aureus. White blood count of 12.92 since reduced to 9.94. ESR 24. CRP less than 0.5. Plain film radiographs and CT scan of the left foot with no radiographic evidence of osteomyelitis. Patient is unable to undergo MRI with a noncompatible nerve stimulator implanted in his lower back. Allergies Allergy/AdvReac Type Severity Reaction Status Date / Time diphenhydramine Allergy Severe hyperactive Verified 09/25/24 17:58 [From Benadryl] ,anxiety,mauricio llucination s haloperidol [From Haldol] Allergy Severe hyperactivi Verified 09/25/24 17:58 ty,agitatio n pregabalin [From Lyrica] Allergy Intermediate hands and Verified 09/25/24 17:58 feet swell and burn Home Medications Medication Instructions Recorded Confirmed Type atorvastatin 20 mg tablet 20 mg PO QAM 09/25/24 09/25/24 History ezetimibe 10 mg tablet (Zetia) 10 mg PO QAM 09/25/24 09/25/24 History gabapentin 800 mg tablet 800 mg PO QAM 09/25/24 09/25/24 History gabapentin 800 mg tablet 800 mg PO TID PRN Pain 09/25/24 09/25/24 History insulin glargine 100 unit/mL 30 unit subcut QAM 09/25/24 09/25/24 History subcutaneous solution (Lantus U-100 Insulin) omeprazole 20 mg tablet,delayed 20 mg PO QAM 09/25/24 09/25/24 History release semaglutide 2 mg/dose (8 mg/3 mL) 2 mg subcut WK 09/25/24 09/25/24 History subcutaneous pen injector (Ozempic) Patient History Social History Smoking Status: Former smoker Hx Alcohol Use: No Hx Substance Use: No Communication Ability: Effective Jewelry Model Maker Required: No Beliefs That Will Affect Care: None Current Living Situation: Spouse Feels Safe at Home: Yes Assistive Devices: None Review of Systems Review of Systems: Positive for nausea vomiting diarrhea. Positive abdominal pain. Denies fever, chills, shortness of breath, chest pain. Positive for pain in the left foot. Denies any vision problems or recent changes in visual acuity. Review of systems otherwise negative unless detailed in HPI. Physical Exam Physical Exam: Const: Appears well developed and well nourished. No signs of acute distress present. CV: Extremities: No cyanosis or edema. Capillary refill time is less than 2 seconds all digits of the bilateral foot. Posterior tibial and dorsalis pedis pulses are palpable bilateral. Lymph: No palpable or visible regional lymphadenopathy. Skin: Decreased hair growth to the bilateral foot. Normal skin turgor. Neuro: Loss of protective sensation to the bilateral foot. Psych: Mood/Affect: Mood is normal. Affect is normal. Cognition: Orientation is intact to person, place and time. Focused lower extremity musculoskeletal exam: Leg: No pain with compression of the calf muscle. Ankles: Normal to inspection and palpation. No swelling bilaterally. No tenderness bilaterally. Motor strength is intact. Range of motion pain-free and unlimited. Feet: Normal to inspection and palpation. No obvious instability. Motor strength is intact. Ulceration left foot: Ulceration subfirst metatarsal head extends to subcutaneous tissue. Hyperkeratotic tissue buildup to the periwound. Slough and fibrotic tissue to the wound bed prior to debridement. No obvious deep extension. Wound does not probe or track in any direction. There is no fluctuance to the wound. Unable to express any drainage. Mild periwound erythema and edema. No lymphangitis or streaking. No malodor. Palpable pedal pulses bilaterally without bounding. Results & Data Vital Signs (Past 12 Hours) Vital Signs Temp Pulse Resp BP Pulse Ox O2 Del Method 09/27/24 07:20 36.3 C L 76 16 161/92 H 92 Room Air Diagnostic Findings CT left foot 09/25/2024: IMPRESSION: 1. No evidence of acute osteomyelitis. 2. Forefoot pressure wound with an ulcer subjacent to the first MTP joint. X-ray left foot 09/25/2024: Impression: 1. Sclerosis and deformity of the second metatarsal head, which could be due to old trauma 2. Calcaneal spurs 3. No definite acute pathology PG Care Time/CCT Total # of Minutes Spent Total Time Spent with Patient: Total time spent is greater than 50% in coordination of care (as documented) at patient's floor/unit and/or counseling patient: [place] [address] OFFICE CONSULT LVL 5/55M Patient Type New Diagnoses Diabetic ulcer of left foot associated with type 2 diabetes mellitus, with fat layer exposed, unspecified part of foot E11.621; L97.522 Diabetic foot ulcer location: unspecified part of foot Loss of protective sensation of skin of foot R20.8
[2024-09-27] MEDS: oxyCODONE HCL IR 5 MG TAB (IMMEDIATE RELEASE) PO PRN (17:31)
--- NOTE | 2024-09-27 17:54 | Hospitalist Progress Note ---
Date of Service September 27, 2024 Assessment & Plan (1) Diabetic foot ulcer: (2) Hyperglycemia due to type 2 diabetes mellitus: (3) Pain: (4) Type 2 diabetes mellitus: (5) Vomiting and diarrhea: Plan 54-year-old male PMHx T2DM insulin-dependent, Crohn's disease, dyslipidemia, and GERD presenting for a left foot blister that has been ongoing for the past 5 weeks and has not gotten better. Patient is from [place], has recently moved to the area. Also having vomiting and diarrhea with every meal. Pt has leukocytosis 12.92 on arrival, ESR 24, and Na 130 with initial glucose 557, alkaline phos 181. CTAP with mildly dilated small bowel loops in LLQ, ileus or obstruction, hepatic steatosis, small fat-containing bilateral inguinal hernias; CXR without acute findings, but mild elevation of the R hemidiaphragm; L foot x- ray with sclerosis and deformity of the second metatarsal head could be due to old trauma, calcaneal spurs, but no acute findings. Patient received 2L NSS, Zofran 4 mg IV, morphine 4 mg IV, and 18 units of insulin in ED. Uncontrolled Type II Diabetes Mellitus, insulin-dependent: H/o DMT2; home regimen Lantus 30U every AM, Ozempic 2 mg SC weekly. Upon arrival, glucose 557. Received 18U insulin and total, most recent glucose 325. Has been eating poorly over the past 2 days given traveling from [place] to [place], did take insulin on the morning of arrival. - Hemoglobin A1C is 11.5. - Pharm glycemic management consult completed - SSI with target BSG range 110-140mg/dL, CF 40, carb ratio 15; Lantus 15 units BID - Hold Ozempic while inpatient - BSG ACHS - Blood glucose levels are improving with current regimen. - Lisinopril started for renal protection #Diabetic foot ulcer, left h/o DMT2 with previous foot wound complicated by gangrene; started ~ 5 weeks ago -Mild leukocytosis no evidence of osteomyelitis on x-ray pending wound culture -CT of left foot 09/25/2024, also no evidence of osteomyelitis pressure ulcer seen near first MTP NO MRI completed given metal plate in back and noncompatible with MRI - Wound culture showing Staph Aureus. Continue Zosyn. -Continue wound care. -Podiatry consult ordered. - Continue acetaminophen, IV hydromorphone, oxycodone, gabapentin as directed for pain. Continue to monitor. Experienced side effects with tramadol. #Abnormal PASCUAL index -Bilateral lower extremity arterial Doppler ordered. #Vomiting + Diarrhea/? Ileus/Crohn's disease/GERD: - Vomiting every morning for the past 3 months, with abdominal pain at L side. Diarrhea x 1.5 months with blood streaking in stool, abdominal pain with BM. History of Crohn's disease, no medications for such. Last colonoscopy ~ 3 years ago, polyps identified by noncancerous. No sick contacts. No recent antibiotics. ? gastroparesis causing symptoms. - CTAP with mildly dilated small bowel loops in LLQ (ileus or obstruction), hepatic steatosis, and bilateral inguinal hernias - negative stool BioFire and C. difficile testing - Sucralfate added; increased omeprazole to 40mg - Consider GI consult for Crohn's management. -Nausea, vomiting, diarrhea, abdominal pain currently resolved. Continue to monitor. #Dyslipidemia- home meds Atorvastatin, ezetimibe on hold Case management consulted- PCP for patient + given recent move to [place] VTE prophylaxis: Lovenox Admission and Anticipated Discharge Date Admission Date: September 25, 2024 Subjective Patient reports that he is feeling okay today. He reports N/V/D have resolved, bowel movements are still loose. He denies abdominal pain, melena, blood in the stool. He has been tolerating p.o. food and drinks, urinating normally. He has been ambulatory. He reports that walking makes the left foot hurt, but if he lays in bed his neuropathy "acts up." He states that the pain starts in left toe and will radiate into the left leg. He reports numbness and tingling of lower extremities bilaterally. He is currently on IV hydromorphone, acetaminophen, and gabapentin for pain with improvement, but does not last long. He is requesting a longer acting medicine for pain control. He reports dizziness and headache with tramadol that was trialed this morning. He denies chest pain, shortness of breath, fever/chills. Review of Systems Review of Systems: See subjective Physical Exam Physical Exam: General: No acute distress Skin: Warm and dry; Quarter sized ulcer present plantar surface of first MTP. No bleeding, drainage, discharge. Callus adjacent to ulcer without erythema. No edema/bruising. Head: Normocephalic, atraumatic Eyes: PERRL, conjunctivae clear, sclera non-icteric; EOM intact ENT: External ear and ear canal without swelling; nose atraumatic; fair dentition, tongue normal appearance, pharynx normal Neck: Supple, no LAD; no JVD Cardio: RRR, no M/G/R, S1 and S2 normal Resp: No respiratory distress, Lungs CTA in all lobes bilaterally, no wheezes, rales, or rhonchi Abdomen: Soft, symmetric,no guarding or rebound tenderness; No distention; No masses or hepatosplenomegaly; Bowel sounds normoactive MSK: No deformities, full ROM throughout; pulses palpable and equal Neuro: Awake, alert; Muscle strength 5/5 bilaterally in UE/LE; Sensation intact bilaterally; CN grossly intact Psych: Appropriate mood and affect; good judgement and insight. and friend present in room at time of visit. Wound care nurse present at time of visit. In addition to wound care, she performed PASCUAL index which revealed noncompressible arteries of both lower extremities. Results & Data Results & Data Vital Signs (Past 12 Hours) Vital signs reviewed. Blood pressure has remained elevated. Vital Signs Temp Pulse Resp BP Pulse Ox O2 Del Method 09/27/24 15:57 36.3 C L 92 H 17 130/87 93 Room Air 09/27/24 07:20 36.3 C L 76 16 161/92 H 92 Room Air Laboratory Results Laboratory results reviewed. White blood cell count has decreased to 9.94. Wound culture positive for Staph aureus. Glucose levels are improving. PG Care Time/CCT Total # of Minutes Spent Total Time Spent with Patient: Total time spent is greater than 50% in coordination of care (as documented) at patient's floor/unit and/or counseling patient: Coding Level of Care Code None Diagnoses Diabetic foot ulcer E11.621; L97.509 Hyperglycemia due to type 2 diabetes mellitus E11.65 Pain R52 Type 2 diabetes mellitus E11.9 Vomiting and diarrhea R11.10; R19.7
--- NOTE | 2024-09-27 17:57 | Ultrasound Report ---
Clinical history: Left foot nonhealing wound Technique: Grayscale, color Doppler and spectral waveform analysis imaging of the leg arteries was performed Findings: Triphasic waveforms are seen within the visualized leg arteries bilaterally. There is mild multifocal atherosclerotic plaque. No definite significant stenosis is seen. Peak systolic velocities in centimeters per second are as follows: Right leg: DRY WALL APPLICATOR 97 PFA 74 Prox SFA 87 Mid SFA 99 Distal SFA 64 Popliteal 65 KHAI 74 RESPIRATORY THERAPY INSTRUCTOR 70 Bryson Pedis 88 Left leg: DRY WALL APPLICATOR 97 PFA 51 Prox SFA 102 Mid SFA 94 Distal SFA 71 Popliteal 79 KHAI 69 RESPIRATORY THERAPY INSTRUCTOR 91 Bryson Pedis 124 Impression: No definite stenosis of the visualized leg arteries Electronically signed by Dariel Mauro 09-27-2024 5:57 PM
[2024-09-28] MEDS: LANTUS PER UNIT CHARGE SQ SCH (08:32)
--- NOTE | 2024-09-28 11:59 | Pharmacy Report ---
Pharmacy Glycemic Short Note 2 - Date of Service September 28, 2024 - Glycemic Short BSG Results (Last 24 hours): 09/27/24 09/27/24 09/28/24 17:11 20:22 07:28 POC Glucose 123 H 128 H 151 H 09/28/24 11:28 POC Glucose 165 H OUTPATIENT ANTIDIABETIC REGIMEN: * Lantus 30 units, ozempic 2 mg SQ weekly HbA1c: 11.5% on 09/26/24 ASSESSMENT: 09/28 * The patient received a total of 69 units of insulin yesterday (30 were basal and 39 were bolus) * Fasting BSG was 151mg/dL this morning. Lantus was increased to 22units QAM yesterday by provider so this will be continued today. A Lantus scale (8, 13, or 18 units depending on BSG) QHS has also been ordered. * A diet was started 09/26 so the parameters of the bolus insulin were tightened significantly. CR was tightened more yesterday as BSGs were elevated in the morning (235-212mg/dL). These bolus parameters will be continued today. 09/26 * 54 year old admitted with diabetic foot ulcer, N/V/D - with poor PO intake last couple of days. Type 2 diabetic - pharmacy consulted for glycemic management. BSGs elevated on arrival to ER >300. Received IV insulin bolus. 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 * Fasting BSG 138 mg/dL - NPO this AM, but now starting diet with lunch time, will resume Lantus at lunch - will trial 10-15 units bid for now. May need to titrate insulin further. A1c pending. PLAN FOR INPATIENT GLYCEMIC CONTROL: * Hold outpatient oral diabetes medications * Basal insulin * Lantus 22 units SQ QAM and Lantus scale at bedtime (BSG < 160 give 8 units, 160-220 give 13 units, > 220 give 18 units) * Bolus insulin * NovoLog per scale ACHS or Q6hrs while NPO * Goal Range: Low 110 mg/dL - High 140 mg/dL * Correction Factor: 20 mg/dL/unit * Nutritional / Prandial insulin per carb ratio of 1 unit per 6 grams CHO consumed
--- NOTE | 2024-09-28 13:24 | Discharge Summary ---
Date of Service September 28, 2024 Admission HPI Per Admitting Provider 54-year-old male PMHx T2DM insulin-dependent, Crohn's disease, dyslipidemia, and GERD presenting for a left foot blister that has been ongoing for the past 5 weeks and has not gotten better. Patient is from [place], has recently moved to the area. Also having vomiting and diarrhea with every meal which has been ongoing. Patient states that the wound on his L foot began approximately 5 weeks ago, and that he does not recall direct injury to the area he just noticed that it had started. He had previous infections secondary to a thorn being in his foot which required infectious disease consults and surgical consultations as he had the complication of gangrene in this same area. States that the pain has just been worsening to the point where he is unable to put any weight on it or walk on the area. Pain today is a 9/10 on the pain scale, described as aching and pressure that surrounds the entire foot. For the past 2 days [employer] he was trying to keep weight off of his foot for this reason. States that previously he was having yellow drainage coming out of the area, but this stopped approximately 1 week ago. No streaking up the leg, but does feel that the sides of his foot are swollen at times. Glucose was elevated at 557 on arrival, but the patient states that he was eating excessive amount of junk food over the past 2 days given that he was traveling from [place] to [place]. Has been taking medications as prescribed. Additionally, patient has been having complaint of vomiting every morning for the past 3 months as well as diarrhea for the past 1.5 months with associated blood streaking in his stool. Does have a history of Crohn's and had colonoscopy approximately 3 years ago which did reveal polyps but noncancerous nature. States that he does get abdominal pain mainly in the left side, and also is exacerbated when he has vomiting. Has not had any fever or chills. Additionally no chest pain, shortness of breath, palpitations, constipation, worsening numbness or tingling, LUTS, or dizziness. ED workup reveals a CBC with leukocytosis of 12.92, ESR 24, CMP with sodium 130, initial glucose 557, most recent 325 after 18U insulin, alkaline phosphatase 181, and UA without signs of infection. CTAP with mildly dilated small bowel loops in LLQ, ileus or obstruction, hepatic steatosis, small fat-containing bilateral inguinal hernias; CXR without acute findings, but mild elevation of the R hemidiaphragm; L foot x-ray with sclerosis and deformity of the second metatarsal head could be due to old trauma, calcaneal spurs, but no acute findings. Patient received 2L NSS, Zofran 4 mg IV, morphine 4 mg IV, and 18 units of insulin in ED. Please see Dr. Oscar's attestation for adjustments/additions to treatment plan. Specialty Data Hospitalist Discharge diagnosis: 1. DMT2 w/hyperglycemia 2. Left diabetic foot ulcer w/ MSSA infection Discharge PE: Vital Signs Temp Pulse Resp BP BP Pulse Ox O2 Del Method 09/28/24 07:00 36.3 C L 82 18 129/80 95 Room Air 09/27/24 22:31 36.6 C 93 H 20 121/84 96 Room Air 09/27/24 15:57 36.3 C L 92 H 17 130/87 93 Room Air GENERAL: 54 yo well-nourished male. A&Ox3. No distress. LUNGS: Clear to auscultation bilaterally. No accessory muscle use. No W/R/R. CARDIOVASCULAR: Regular rate and rhythm. ABDOMEN: Soft, non-tender and non-distended. Bowel sounds normoactive x 4 quad. EXTREMITIES: No edema. Non-tender. Peripheral (DP) pulses +2/4. PSYCHIATRIC: Cooperative. Appropriate mood and affect. SKIN: Wound on left forefoot dressed. Remaining skin Warm, dry, intact. No rashes or lesions. Discharge Data Consultations 09/25/24 18:58 ED Decision to Admit Stat 09/27/24 11:59 Consult Podiatry Routine Procedures Performed 09/27/24 07:56 09/27/24 07:56 Abdomen/Pelvis CT 09/25/24 15:35 INDICATION: Abdominal pain and bloody stools. COMPARISON: No relevant priors available. TECHNIQUE: Axial CT images of the abdomen and pelvis were obtained following IV contrast administration. Coronal and sagittal reformations were reviewed. FINDINGS: Subsegmental atelectasis in the lung bases. Hepatic steatosis. The gallbladder is surgically absent. The spleen, pancreas and adrenal glands appear unremarkable. No hydronephrosis. No evidence of bowel obstruction/appendicitis. Mildly dilated small bowel loops in the left lower quadrant. No pneumatosis or portal venous gas. No free air. No drainable fluid collection. Atheromatous plaquing of the abdominal aorta without dissection or aneurysm. Mild urinary bladder distention. Small fat-containing bilateral inguinal hernias. No acute osseous abnormality evident. IMPRESSION: 1. Mildly dilated small bowel loops in the left lower quadrant could relate to ileus or obstruction. No pneumatosis/portal venous gas or free air. 2. Hepatic steatosis. 3. Small fat-containing bilateral inguinal hernias. Electronically signed by Des Donald 09-25-2024 5:08 PM Chest X-Ray 09/25/24 15:35 XR chest 1V portable CLINICAL HISTORY: weakness COMPARISON STUDY: No previous studies for comparison. FINDINGS: Intracanalicular electrodes are incidentally noted. There is mild elevation of the right hemidiaphragm. Associated right basilar opacity favors atelectasis. No consolidation to suggest pneumonia. There is no evidence for pulmonary edema. Cardiomediastinal silhouette is unremarkable. IMPRESSION: 1. No acute cardiopulmonary findings. 2. Mild elevation of the right hemidiaphragm. Associated right basilar densities favor atelectasis. ACT 112: Negative or not required by law. Electronically signed by: Sergio Andrew M.D. 09/25/2024 3:49 PM Foot X-Ray 09/25/24 16:29 Clinical History: Diabetic ulcer 3 views of the left foot are submitted for review. Findings: There is sclerosis and deformity of the second metatarsal head. No subluxation or dislocation is seen. No significant arthritic changes are noted. There are dorsal and plantar calcaneal spurs. No other osseous abnormality is identified. There are no radiopaque foreign bodies. Vascular calcifications are present. Impression: 1. Sclerosis and deformity of the second metatarsal head, which could be due to old trauma 2. Calcaneal spurs 3. No definite acute pathology Electronically signed by Dariel Mauro 09-25-2024 5:[address] 09/25/24 20:19 Exam(s): CT LEFT FOOT W/WO Contrast IV Amt: 90 ml optiray 320 EXAM: CT Left Lower Extremity Without and With Intravenous Contrast, Foot CLINICAL HISTORY: Reason for exam: Diabetic foot ulcer. TECHNIQUE: Axial computed tomography images of the left foot without and with intravenous contrast. CTDI is 60 mGy and DLP is 1062.62 mGy-cm. Automated exposure control was utilized for the study. A dose lowering technique was utilized adhering to the principles of ALARA. CONTRAST: Patient received 90 ml optiray 320 of IV contrast COMPARISON: No relevant prior studies available. FINDINGS: Bones/joints: No evidence of acute osteomyelitis. Sequela of second metatarsal head osteonecrosis with degenerative changes at the second MTP joint. No dislocation. Soft tissues: Forefoot pressure wound with an ulcer subjacent to the first MTP joint. No soft tissue gas. No abscess. No radiopaque foreign body. Vasculature: Advanced atherosclerotic calcifications. IMPRESSION: 1. No evidence of acute osteomyelitis. 2. Forefoot pressure wound with an ulcer subjacent to the first MTP joint. Electronically signed by: Damien Lopez MD 09/25/24 23:31 PM Duplex Scan Lower Extremity Artery 09/27/24 13:35 Clinical history: Left foot nonhealing wound Technique: Grayscale, color Doppler and spectral waveform analysis imaging of the leg arteries was performed Findings: Triphasic waveforms are seen within the visualized leg arteries bilaterally. There is mild multifocal atherosclerotic plaque. No definite significant stenosis is seen. Peak systolic velocities in centimeters per second are as follows: Right leg: HOOP MAKER 97 PFA 74 Prox SFA 87 Mid SFA 99 Distal SFA 64 Popliteal 65 KHAI 74 VP SECURITY 70 Bryson Pedis 88 Left leg: HOOP MAKER 97 PFA 51 Prox SFA 102 Mid SFA 94 Distal SFA 71 Popliteal 79 KHAI 69 VP SECURITY 91 Bryson Pedis 124 Impression: No definite stenosis of the visualized leg arteries Electronically signed by Dariel Mauro 09-27-2024 5:57 PM Gram Stain Final 09/25/24 Gram Stain Result Rare WBCs Seen Rare Gram Positive Cocci Aero/Ellyn Cult Preliminary 09/28/24-1030 Organism 1 Staphylococcus aureus Quantity Moderate Sens Sensitivities to Follow Organism 2 Staphylococcus aureus#2 Quantity Moderate Sens Sensitivities to Follow Organism 3 Strep agalactiae (group B) Quantity Few Sens Sensitivities to Follow S aureus S aureus#2 Str ag GpB RX M.I.C. RX M.I.C. RX M.I.C. --- --------- --- --------- --- --------- Ampicillin S 0.12 Cefepime S <=0.25 Cefotaxime S <=0.25 Ceftriaxone S <=0.25 Chloramphenicol S 4 Clindamycin S <=0.25 S <=0.25 R >0.5 Daptomycin S <=0.5 S <=0.5 Erythromycin S 0.5 S <=0.25 R >0.5 Linezolid S 4 S 2 Oxacillin S <=0.25 S <=0.25 Penicillin S 0.06 Tetracycline S <=4 S <=4 Trimeth/Sulfa S <=0.5/9.5 S <=0.5/9.5 Vancomycin S 1 S 1 S 0.5 S = SENSITIVE I = INTERMEDIATE R = RESISTANT Hospital Course (1) Diabetic foot ulcer: h/o DMT2 with previous foot wound complicated by gangrene; started ~ 5 weeks ago -Mild leukocytosis no evidence of osteomyelitis on x-ray pending wound culture -CT of left foot 09/25/2024, also no evidence of osteomyelitis pressure ulcer seen near first MTP NO MRI completed given metal plate in back and noncompatible with MRI - Wound culture showing 2 different staph aureus - both MSSA. Covered with zosyn during stay, transition to keflex to finish at home. - Continue wound care: Cleanse wound once daily with normal sterile saline dry and dress with Aquacel Ag and a bordered foam dressing. - Podiatry consult ordered, appreciate assistance. beside debridement performed. will f/u in diabetic foot wound clinic in 2 weeks. - Ordered IV acetaminophen, IV hydromorphone, oxycodone, gabapentin as directed for pain. Continue to monitor. Experienced side effects with tramadol. - Transition to percocet on d/c, #7 tabs dispensed - wear camboot on left foot at all times when ambulating Abnormal PASCUAL index -Bilateral lower extremity arterial Doppler ordered w/o definite evidence of stenosis -continue statin and consider adding daily asa 81mg (2) Hyperglycemia due to type 2 diabetes mellitus: H/o DMT2; home regimen Lantus 30U every AM, Ozempic 2 mg SC weekly. Upon arrival, glucose 557. Received 18U insulin and total, most recent glucose 325. Has been eating poorly over the past 2 days given traveling from [place] to [place], did take insulin on the morning of arrival. - Hemoglobin A1C is 11.5. - Pharm glycemic management consult completed - SSI with target BSG range 110-140mg/dL, CF 40, carb ratio 15; Lantus 15 units BID - Hold Ozempic while inpatient - BSG ACHS - Blood glucose levels are improving with current regimen. - Lisinopril started for renal protection (3) Vomiting and diarrhea: - Vomiting every morning for the past 3 months, with abdominal pain at L side. Diarrhea x 1.5 months with blood streaking in stool, abdominal pain with BM. History of Crohn's disease, no medications for such. Last colonoscopy ~ 3 years ago, polyps identified by noncancerous. No sick contacts. No recent antibiotics. ? gastroparesis causing symptoms. - CTAP with mildly dilated small bowel loops in LLQ (ileus or obstruction), hepatic steatosis, and bilateral inguinal hernias - negative stool BioFire and C. difficile testing - Sucralfate added; increased omeprazole to 40mg - Consider GI consult for Crohn's management. -Nausea, vomiting, diarrhea, abdominal pain currently resolved. Continue to monitor. Plan Chronic medical problems: #Dyslipidemia- home meds Atorvastatin, ezetimibe Patient is medically and hemodynamically stable for discharge. Medications prescribed including keflex to complete course at home for diabetic foot ulcer, lisinopril and percocet as needed for pain. F/U with new PCP within 1 week of discharge. Follow up with diabetic foot clinic in 2 weeks. Plan d/w Dr. Carver who is in agreement with aforementioned plan. Total time for discharge: 37 minutes Coding Level of Care Code 59657 INP/OBS DISCH >30 MIN Diagnoses Diabetic foot ulcer E11.621; L97.509 Hyperglycemia due to type 2 diabetes mellitus E11.65 Vomiting and diarrhea R11.10; R19.7
--- NOTE | 2024-09-28 15:01 | Podiatry Progress Note ---
Date of Service September 28, 2024 Assessment & Plan (1) Diabetic ulcer of left foot associated with type 2 diabetes mellitus, with fat layer exposed: (2) Loss of protective sensation of skin of foot: Plan Diabetic ulcer left foot: Relatively stable appearing diabetic foot ulcer with minimally exposed subcutaneous tissue. No clinical or imaging concerning for underlying osteomyelitis. -Bedside debridement of wound 09/27/2024. -Patient has been seen by Orthotics and fit with offloading cam walker to the left foot. Patient educated on use and encouraged to wear at all times while weightbearing until follow-up with the wound center. Patient seen by physical therapy for ambulation with walker. -Soft tissue infection: Patient continues IV Zosyn. Pending continued clinical improvement okay for discharge on p.o. antibiotics from my standpoint. If patient should discharge prior to finalization of cultures I can continue to monitor as an outpatient and adjust antibiotics as needed. -Culture: Left foot wound culture 09/25/2024. Preliminary culture results positive for Staph aureus and group B strep. -Imaging: CT and x-ray results of the left foot reviewed with no signs of osteomyelitis. -Dressing change: Cleanse wound once daily with normal sterile saline dry and dressed with Aquacel Ag and a bordered foam dressing. -Discharge planning: Referral placed to the wound center and diabetic foot clinic. Patient should schedule follow-up in the wound center and diabetic foot clinic within 2 weeks of discharge. Wound center will continue to follow patient's wound as an outpatient with monitoring, debridement and dressing recommendations. Will see him in the diabetic foot clinic for offloading recommendations in the short-term, education on appropriate care of the diabetic foot and eventual transition to appropriate diabetic shoe gear to help prevent future ulceration. -Patient and family educated on home dressing changes which should continue once daily. Remove dressing, cleanse wound with normal sterile saline or wound wash, dry, dressed with Aquacel Ag and a dry sterile dressing. Thank you for consulting podiatry date in the care of this patient. Cleared for discharge from podiatry standpoint. Admission and Anticipated Discharge Date Admission Date: September 25, 2024 Subjective Patient seen resting comfortably in hospital bed with and daughter present in room. He has received his cam walker for the left foot with offloading in place. He has been up and around walking with physical therapy today and notes it is cumbersome but he feels that he will be able to manage. We briefly discu ssed total contact casting is a possibility in the outpatient arena and he is agreeable to this treatment option. Discussed plan for patient to follow-up in the wound care center for continued management of his left foot wound in the diabetic foot clinic for continued diabetic foot education, total contact casting if needed, eventual transition to custom molded diabetic shoe gear. The family is familiar with the wound center with other family members who have received care here in the past. Patient is aware that referrals have been placed and he is encouraged to reach out following discharge to set up an appointment for follow-up. Review of Systems Review of Systems: Denies nausea, vomiting, fever, chills, shortness of breath, chest pain, diarrhea over the past 24 hours. Other systems reviewed and negative unless detailed in the HPI or below. Positive for pain in the left foot. Denies any vision problems or recent changes in visual acuity. Physical Exam Physical Exam: Const: Appears well developed and well nourished. No signs of acute distress present. CV: Extremities: No cyanosis or edema. Capillary refill time is less than 2 seconds all digits of the bilateral foot. Posterior tibial and dorsalis pedis pulses are palpable bilateral. Lymph: No palpable or visible regional lymphadenopathy. Skin: Decreased hair growth to the bilateral foot. Normal skin turgor. Neuro: Loss of protective sensation to the bilateral foot. Psych: Mood/Affect: Mood is normal. Affect is normal. Cognition: Orientation is intact to person, place and time. Focused lower extremity musculoskeletal exam: Leg: No pain with compression of the calf muscle. Ankles: Normal to inspection and palpation. No swelling bilaterally. No tenderness bilaterally. Motor strength is intact. Range of motion pain-free and unlimited. Feet: Normal to inspection and palpation. No obvious instability. Motor strength is intact. Ulceration left foot: Ulceration subfirst metatarsal head extends to subcutaneous tissue. Wound does not probe or track in any direction. There is no fluctuance to the wound. Mild maceration to the periwound. Wound is decreased in dimensions since last seen. Healthy granular wound bed. No active drainage. Scant serous drainage to dressing. Unable to express any drainage. Mild periwound erythema and edema. No lymphangitis or streaking. No malodor. Palpable pedal pulses bilaterally without bounding. Results & Data Results & Data Vital Signs (Past 12 Hours) Vital Signs Temp Pulse Resp BP Pulse Ox O2 Del Method 09/28/24 07:00 36.3 C L 82 18 129/80 95 Room Air Coding [place] [address] SUB INP/OBS CARE 2/35MIN Patient Type Established Diagnoses Diabetic ulcer of left foot associated with type 2 diabetes mellitus, with fat layer exposed, unspecified part of foot E11.621; L97.522 Diabetic foot ulcer location: unspecified part of foot Loss of protective sensation of skin of foot R20.8 (1) Diabetic ulcer of left foot associated with type 2 diabetes mellitus, with fat layer exposed Diabetic foot ulcer location: unspecified part of foot Qualified Code(s): E11.621 - Type 2 diabetes mellitus with foot ulcer; L97.522 - Non-pressure chr onic ulcer of other part of left foot with fat layer exposed
== END 2024-09-28 19:44 | disposition home or self-care (01) | DRG 623 ==
LOC: ED 14:10 → SUATTDRO 19:47 → EDINP 19:47 → 3N 20:32